=== PATIENT | male | born 1955 | race Caucasian/White ===

== ENCOUNTER 2020-08-01 22:03 | Inpatient (IN) ==
[2020-08-02] MEDS ORDERED: *HR* Promethazine 25 MG/ML VIAL IM PRN (00:30)
[2020-08-02] MEDS ORDERED: Naloxone 0.4 MG/ML INJ IVP PRN (00:30)
[2020-08-02] MEDS ORDERED: Ondansetron 4 MG/2 ML VIAL IVP PRN (00:30)
[2020-08-02] MEDS ORDERED: Perflutren Lipid Microsphere 1.3 ML in 0.9 % Sodium Chloride 8.7 ML IVP PRN (00:33)
[2020-08-02] MEDS ORDERED: D5% in Water 1,000 ML IVC PRN (00:38)
[2020-08-02] MEDS ORDERED: *HR* Dextrose 50 % in Water (Vial) 50 ML VIAL IVP PRN (00:38)
[2020-08-02] MEDS ORDERED: Dextrose Gel 15 GM/37.5 ML TUBE PO PRN ×2 (00:38)
[2020-08-02] MEDS ORDERED: *HR* LORazepam 2 MG/ML VIAL IVP PRN ×2 (00:40)
[2020-08-02] MEDS ORDERED: Ipratropium/Albuterol Neb 3 ML IH PRN (01:00)
[2020-08-02 01:31] LABS: Bilirubin,Urine Negative (Negative); Blood,Urine Negative (Negative); Clarity,Urine Clear (Clear); Color,Urine Yellow (Yellow); Glucose,Urine (UA) Normal (Normal); Ketones,Urine Negative (Negative); Leukocyte Esterase,Urine Negative (Negative); Nitrite,Urine Negative (Negative); PH,Urine 5.5 pH Units (5.0-8.0); Protein,Urine Trace mg/dL (Neg-Trace); Specific Gravity,Urine 1.016 (1.010-1.025); Urobilinogen,Urine Normal (Normal)
[2020-08-02] MEDS: Ringers Solution, Lactated 1,000 ML IVC SCH ×2 (01:32→10:58)
[2020-08-02] MEDS: Acetaminophen 325 MG TABLET PO PRN ×4 (01:33→23:22)
[2020-08-02 01:49] LABS: Protein/Creatinine Ratio,Urine 0.24 mg/mg (0.00-0.20); Sodium, Urine 21.5 mEq/L
[2020-08-02] MEDS: Thiamine (B-1) 200 MG in 0.9 % Sodium Chloride 50 ML IVPB SCH ×2 (02:35→16:39)
[2020-08-02 02:42] LABS: Adenovirus Not Detected (Not Detect); Bordetella Pertussis Not Detected (Not Detect); Chlamydophila pneumoniae Not Detected (Not Detect); Coronavirus 229E Not Detected (Not Detect); Coronavirus HKU1 Not Detected (Not Detect); Coronavirus NL63 Not Detected (Not Detect); Coronavirus OC43 Not Detected (Not Detect); Human Metapneumovirus Not Detected (Not Detect); Human Rhinovirus/Enterovirus Not Detected (Not Detect); Influenza A Subtype 2009 H1 Not Detected (Not Detect); Influenza B Not Detected (Not Detect); Mycoplasma pneumoniae Not Detected (Not Detect); Parainfluenza Virus 1 Not Detected (Not Detect); Parainfluenza Virus 2 Not Detected (Not Detect); Parainfluenza Virus 3 Not Detected (Not Detect); Parainfluenza Virus 4 Not Detected (Not Detect); Respiratory Syncytial Virus Not Detected (Not Detect); SARS-CoV-2 Not Detected (Not Detect)
[2020-08-02] MEDS: Ipratropium/Albuterol Neb 3 ML IH SCH ×6 (03:47→23:19)
[2020-08-02 05:18] LABS: Basophils % 0.5 %; Eosinophils # 0.5 K/mcL (0.0-0.6); Hematocrit 24.2 % (37.5-50.1); Immature Granulocytes % 1.8 % (0-4); Lymphocytes # 1.1 K/mcL (0.6-4.6); Lymphocytes % 13.5 %; Mean Corpuscular HGB Conc 33.1 g/dL (31.6-35.5); Mean Corpuscular Hemoglobin 32.4 pg (28.0-33.3); Mean Platelet Volume 8.9 fL (9.4-12.4); Monocytes # 0.8 K/mcL (0.0-1.3); Monocytes % 9.3 %; Neutrophils # 5.8 K/mcL (1.6-8.9); Nucleated Red Blood Cells 0.4 /100 WBC (0); Platelet Count 354 K/mcL (140-400); Red Blood Count 2.47 M/mcL (4.19-5.50); Red Cell Distribution Width 15.2 % (11.5-14.5); Segmented Neutrophils % 68.9 %; White Blood Count 8.4 K/mcL (4.3-11.1)
[2020-08-02 05:23] LABS: INR 1.2; Prothrombin Time 14.2 Seconds (9.4-12.1)
[2020-08-02 05:41] LABS: Albumin 3.3 g/dL (3.5-5.7); Albumin/Globulin Ratio 1.2 (1.1-2.2); Bilirubin,Total 0.3 mg/dL (0.3-1.0); Calcium 8.4 mg/dL (8.6-10.3); Chol/HDL Ratio 3.3 (0-4.9); Globulin 2.8 g/dL (2.4-3.5); Magnesium 3.2 mg/dL (1.6-2.6); Phosphorous 5.5 mg/dL (2.7-4.5); Potassium 3.5 mEq/L (3.5-5.1); Total Protein 6.1 g/dL (6.4-8.9)
[2020-08-02] MEDS: Cefepime HCl 2,000 MG in Water for inj. (sterile) 20 ML IVP SCH (06:27)
[2020-08-02] MEDS: *HR* Heparin 5,000 UNIT/ML VIAL SQ SCH ×3 (06:27→21:20)
[2020-08-02] MEDS: Insulin LISPRO 300 UNITS/3 ML VIAL SUBQ SCH ×4 (08:17→21:07)
[2020-08-02] MEDS: Aspirin Enteric Coated 325 MG Tablet PO SCH (08:30)
[2020-08-02] MEDS: lamoTRIgine 25 MG TABLET PO SCH ×3 (08:31→21:20)
[2020-08-02] MEDS: MethylPREDNISolone 40 MG/ML VIAL IVP SCH ×3 (08:31→23:23)
[2020-08-02] MEDS ORDERED: Albumin 25% 25gram/100mL 25 GM/100 ML IV.SOLN IVPB ONE (10:59)
[2020-08-02] MEDS ORDERED: Furosemide 40 MG/4 ML VIAL IVP ONE (10:59)
[2020-08-02] MEDS ORDERED: Furosemide 80 MG in 0.9 % Sodium Chloride 50 ML IVPB ONE (11:12)
[2020-08-02] MEDS: Melatonin 3 MG TABLET PO PRN (23:22)
[2020-08-02] MEDS: *HR* LORazepam 2 MG/ML VIAL IVP PRN (23:36)
[2020-08-03 01:43] LABS: Hematocrit 22.9 % (37.5-50.1); Hemoglobin 7.9 g/dL (12.9-16.9); Mean Corpuscular HGB Conc 34.5 g/dL (31.6-35.5); Mean Corpuscular Hemoglobin 32.6 pg (28.0-33.3); Mean Corpuscular Volume 94.6 fL (83.0-100.0); Mean Platelet Volume 8.6 fL (9.4-12.4); Platelet Count 313 K/mcL (140-400); Red Blood Count 2.42 M/mcL (4.19-5.50); Red Cell Distribution Width 14.8 % (11.5-14.5)
[2020-08-03 01:57] LABS: VBG HCO3 22 mEq/L (21-27); VBG PCO2 35 mmHg (41-51); VBG PO2 111 mmHg (25-50)
[2020-08-03 02:03] LABS: BUN/Creatinine Ratio 25 (6-26); Blood Urea Nitrogen 30 mg/dL (8-23); Calcium 8.6 mg/dL (8.6-10.3); Carbon Dioxide 21 mEq/L (23-29); Chloride 97 mEq/L (98-107); Glucose 190 mg/dL (70-105); Magnesium 1.9 mg/dL (1.6-2.6); Osmolality,Calculated 281 (280-300); Phosphorous 4.2 mg/dL (2.7-4.5); Potassium 3.1 mEq/L (3.5-5.1); Sodium 130 mEq/L (136-145); eGFR For African Americans > 60 (> 60); eGFR For Non-African Americans > 60 (> 60)
[2020-08-03] MEDS: Ipratropium/Albuterol Neb 3 ML IH SCH ×6 (04:11→23:15)
[2020-08-03] MEDS: Cefepime HCl 2,000 MG in Water for inj. (sterile) 20 ML IVP SCH ×2 (05:53→16:23)
[2020-08-03] MEDS: Acetaminophen 325 MG TABLET PO PRN ×3 (05:53→20:24)
[2020-08-03] MEDS: *HR* Heparin 5,000 UNIT/ML VIAL SQ SCH ×3 (05:53→20:25)
[2020-08-03] MEDS: Insulin LISPRO 300 UNITS/3 ML VIAL SUBQ SCH ×3 (08:47→16:23)
[2020-08-03] MEDS: MethylPREDNISolone 40 MG/ML VIAL IVP SCH ×2 (08:47→16:22)
[2020-08-03] MEDS: Aspirin Enteric Coated 325 MG Tablet PO SCH (08:47)
[2020-08-03] MEDS: lamoTRIgine 25 MG TABLET PO SCH ×3 (08:47→20:24)
[2020-08-03] MEDS: Thiamine (B-1) 200 MG in 0.9 % Sodium Chloride 50 ML IVPB SCH (16:23)
[2020-08-03] MEDS ORDERED: Nitroglycerin 0.4 MG TAB.SUBL SL ONE (16:27)
[2020-08-03] MEDS: Nitroglycerin 0.4 MG TAB.SUBL SL PRN ×2 (16:38→16:45)
[2020-08-03] MEDS: Gabapentin 300 MG CAPSULE PO SCH (20:25)
[2020-08-04] MEDS: Insulin LISPRO 300 UNITS/3 ML VIAL SUBQ SCH ×5 (00:18→20:15)
[2020-08-04] MEDS: MethylPREDNISolone 40 MG/ML VIAL IVP SCH ×4 (00:59→23:35)
[2020-08-04] MEDS: Ipratropium/Albuterol Neb 3 ML IH SCH ×6 (04:49→23:55)
[2020-08-04] MEDS: Cefepime HCl 2,000 MG in Water for inj. (sterile) 20 ML IVP SCH ×3 (06:42→23:35)
[2020-08-04] MEDS: *HR* Heparin 5,000 UNIT/ML VIAL SQ SCH ×3 (06:43→20:23)
[2020-08-04] MEDS: lamoTRIgine 25 MG TABLET PO SCH ×3 (10:12→20:23)
[2020-08-04] MEDS: Gabapentin 300 MG CAPSULE PO SCH ×3 (10:12→20:23)
[2020-08-04] MEDS: Aspirin Enteric Coated 81 MG Tablet PO SCH (10:12)
[2020-08-04] MEDS: Famotidine 20 MG TABLET PO SCH (10:12)
[2020-08-04] MEDS: FLUoxetine 20 MG CAPSULE PO SCH (10:12)
[2020-08-04 12:07] LABS: Mean Corpuscular HGB Conc 32.1 g/dL (31.6-35.5); Mean Corpuscular Volume 99.6 fL (83.0-100.0); Mean Platelet Volume 8.9 fL (9.4-12.4); Platelet Count 374 K/mcL (140-400); Red Blood Count 2.81 M/mcL (4.19-5.50); Red Cell Distribution Width 15.7 % (11.5-14.5)
[2020-08-04 12:09] LABS: White Blood Count 16.3 K/mcL (4.3-11.1)
[2020-08-04 12:54] LABS: BUN/Creatinine Ratio 33 (6-26); Blood Urea Nitrogen 30 mg/dL (8-23); Calcium 9.6 mg/dL (8.6-10.3); Carbon Dioxide 24 mEq/L (23-29); Chloride 103 mEq/L (98-107); Glucose 138 mg/dL (70-105); Osmolality,Calculated 290 (280-300); Potassium 5.1 mEq/L (3.5-5.1); Sodium 136 mEq/L (136-145); eGFR For African Americans > 60 (> 60); eGFR For Non-African Americans > 60 (> 60)
[2020-08-04] MEDS: Acetaminophen 325 MG TABLET PO PRN (17:01)
[2020-08-05] MEDS: Melatonin 3 MG TABLET PO PRN (01:24)
[2020-08-05] MEDS: Acetaminophen 325 MG TABLET PO PRN ×3 (01:24→18:06)
[2020-08-05 03:02] LABS: Hematocrit 25.2 % (37.5-50.1); Mean Corpuscular HGB Conc 31.7 g/dL (31.6-35.5); Mean Corpuscular Hemoglobin 31.6 pg (28.0-33.3); Mean Corpuscular Volume 99.6 fL (83.0-100.0); Mean Platelet Volume 8.8 fL (9.4-12.4); Platelet Count 344 K/mcL (140-400); Red Blood Count 2.53 M/mcL (4.19-5.50); Red Cell Distribution Width 15.5 % (11.5-14.5); White Blood Count 15.8 K/mcL (4.3-11.1)
[2020-08-05 03:13] LABS: BUN/Creatinine Ratio 40 (6-26); Blood Urea Nitrogen 37 mg/dL (8-23); Calcium 8.9 mg/dL (8.6-10.3); Carbon Dioxide 23 mEq/L (23-29); Chloride 102 mEq/L (98-107); Glucose 185 mg/dL (70-105); Magnesium 1.8 mg/dL (1.6-2.6); Osmolality,Calculated 287 (280-300); Potassium 5.4 mEq/L (3.5-5.1); Sodium 132 mEq/L (136-145); eGFR For African Americans > 60 (> 60); eGFR For Non-African Americans > 60 (> 60)
[2020-08-05] MEDS: Ipratropium/Albuterol Neb 3 ML IH SCH ×6 (03:56→23:29)
[2020-08-05] MEDS: *HR* Heparin 5,000 UNIT/ML VIAL SQ SCH ×3 (05:05→20:53)
[2020-08-05] MEDS: Insulin LISPRO 300 UNITS/3 ML VIAL SUBQ SCH ×4 (07:46→20:49)
[2020-08-05] MEDS: Famotidine 20 MG TABLET PO SCH (09:21)
[2020-08-05] MEDS: FLUoxetine 20 MG CAPSULE PO SCH (09:21)
[2020-08-05] MEDS: Aspirin Enteric Coated 81 MG Tablet PO SCH (09:21)
[2020-08-05] MEDS: predniSONE 20 MG TABLET PO SCH (09:21)
[2020-08-05] MEDS: Cefepime HCl 2,000 MG in Water for inj. (sterile) 20 ML IVP SCH ×3 (09:22→23:43)
[2020-08-05] MEDS: lamoTRIgine 25 MG TABLET PO SCH ×3 (09:22→20:52)
[2020-08-05] MEDS: Gabapentin 300 MG CAPSULE PO SCH ×3 (09:22→20:52)
[2020-08-05 09:58] LABS: ANA IgG by ELISA NONE DETECTED (None Detected); Serine Protease-3 Antibody 1 AU/mL (0-19)
[2020-08-06 02:32] LABS: Basophils % 0.1 %; Eosinophils % 0.1 %; Hematocrit 25.3 % (37.5-50.1); Hemoglobin 7.9 g/dL (12.9-16.9); Immature Granulocytes % 2.3 % (0-4); Lymphocytes # 1.5 K/mcL (0.6-4.6); Lymphocytes % 10.4 %; Mean Corpuscular HGB Conc 31.2 g/dL (31.6-35.5); Mean Corpuscular Hemoglobin 31.1 pg (28.0-33.3); Mean Corpuscular Volume 99.6 fL (83.0-100.0); Mean Platelet Volume 8.8 fL (9.4-12.4); Monocytes # 1.2 K/mcL (0.0-1.3); Monocytes % 8.2 %; Neutrophils # 11.2 K/mcL (1.6-8.9); Nucleated Red Blood Cells 0.4 /100 WBC (0); Platelet Count 324 K/mcL (140-400); Red Blood Count 2.54 M/mcL (4.19-5.50); Red Cell Distribution Width 15.4 % (11.5-14.5); Segmented Neutrophils % 78.9 %; White Blood Count 14.2 K/mcL (4.3-11.1)
[2020-08-06 02:55] LABS: % Iron Saturation 7 % (20-55); Alanine Aminotransferase 75 Units/L (7-52); Albumin 3.4 g/dL (3.5-5.7); Albumin/Globulin Ratio 1.4 (1.1-2.2); Alkaline Phosphatase 211 Units/L (34-104); Aspartate Amino Transferase 66 Units/L (13-39); BUN/Creatinine Ratio 44 (6-26); Bilirubin,Direct 0.1 mg/dL (0.0-0.2); Bilirubin,Indirect 0.2 mg/dL (0.0-1.0); Bilirubin,Total 0.3 mg/dL (0.3-1.0); Blood Urea Nitrogen 32 mg/dL (8-23); Calcium 9.1 mg/dL (8.6-10.3); Carbon Dioxide 25 mEq/L (23-29); Chloride 105 mEq/L (98-107); Globulin 2.4 g/dL (2.4-3.5); Glucose 136 mg/dL (70-105); Iron 20 mcg/dL (65-175); Magnesium 1.7 mg/dL (1.6-2.6); Osmolality,Calculated 291 (280-300); Phosphorous 4.2 mg/dL (2.7-4.5); Potassium 5.2 mEq/L (3.5-5.1); Sodium 136 mEq/L (136-145); Total Protein 5.8 g/dL (6.4-8.9); Transferrin 216 mg/dL (203-362); eGFR For African Americans > 60 (> 60); eGFR For Non-African Americans > 60 (> 60)
[2020-08-06 03:09] LABS: Estimated Average Glucose 108 mg/dl; Hemoglobin A1C 5.4 %
[2020-08-06 03:12] LABS: Ferritin 44 ng/mL (20-250); Procalcitonin 0.08 ng/mL (0.00-0.15)
[2020-08-06 03:16] LABS: Folate 9.9 ng/mL (3.0-16.0)
[2020-08-06] MEDS: Ipratropium/Albuterol Neb 3 ML IH SCH ×6 (03:42→23:56)
[2020-08-06] MEDS: *HR* Heparin 5,000 UNIT/ML VIAL SQ SCH ×3 (05:10→21:25)
[2020-08-06] MEDS ORDERED: Iron Sucrose Complex 200 MG in 0.9 % Sodium Chloride 100 ML IVPB ONE (07:34)
[2020-08-06] MEDS: Aspirin Enteric Coated 81 MG Tablet PO SCH (07:59)
[2020-08-06] MEDS: lamoTRIgine 25 MG TABLET PO SCH ×3 (07:59→21:27)
[2020-08-06] MEDS: Gabapentin 300 MG CAPSULE PO SCH ×3 (07:59→21:27)
[2020-08-06] MEDS: Cefepime HCl 2,000 MG in Water for inj. (sterile) 20 ML IVP SCH ×2 (07:59→16:09)
[2020-08-06] MEDS: predniSONE 20 MG TABLET PO SCH (07:59)
[2020-08-06] MEDS: Folic Acid 1 MG TABLET PO SCH (07:59)
[2020-08-06] MEDS: Famotidine 20 MG TABLET PO SCH (07:59)
[2020-08-06] MEDS: FLUoxetine 20 MG CAPSULE PO SCH (07:59)
[2020-08-06] MEDS: Insulin LISPRO 300 UNITS/3 ML VIAL SUBQ SCH ×4 (08:04→21:30)
[2020-08-06] MEDS: *HR* LORazepam 2 MG/ML VIAL IVP PRN (10:45)
[2020-08-06] MEDS ORDERED: Furosemide 40 MG/4 ML VIAL IVP ONE (17:41)
[2020-08-06] MEDS: Doxycycline 100 MG CAPSULE PO SCH (21:26)
[2020-08-06] MEDS: Acetaminophen 325 MG TABLET PO PRN (22:50)
[2020-08-07] MEDS: Melatonin 3 MG TABLET PO PRN ×2 (02:42→22:47)
[2020-08-07] MEDS: Ipratropium/Albuterol Neb 3 ML IH SCH ×6 (04:22→23:54)
[2020-08-07] MEDS: *HR* Heparin 5,000 UNIT/ML VIAL SQ SCH ×3 (05:57→22:47)
[2020-08-07 06:50] LABS: Basophils % 0.2 %; Eosinophils # 0.2 K/mcL (0.0-0.6); Hematocrit 25.7 % (37.5-50.1); Hemoglobin 8.4 g/dL (12.9-16.9); Immature Granulocytes % 3.4 % (0-4); Lymphocytes # 2.4 K/mcL (0.6-4.6); Lymphocytes % 21.4 %; Mean Corpuscular HGB Conc 32.7 g/dL (31.6-35.5); Mean Corpuscular Hemoglobin 31.9 pg (28.0-33.3); Mean Corpuscular Volume 97.7 fL (83.0-100.0); Neutrophils # 7.2 K/mcL (1.6-8.9); Nucleated Red Blood Cells 0.2 /100 WBC (0); Platelet Count 314 K/mcL (140-400); Red Blood Count 2.63 M/mcL (4.19-5.50); Red Cell Distribution Width 15.3 % (11.5-14.5); White Blood Count 11.2 K/mcL (4.3-11.1)
[2020-08-07 07:08] LABS: BUN/Creatinine Ratio 39 (6-26); Blood Urea Nitrogen 29 mg/dL (8-23); Calcium 9.5 mg/dL (8.6-10.3); Carbon Dioxide 29 mEq/L (23-29); Chloride 102 mEq/L (98-107); Glucose 97 mg/dL (70-105); Magnesium 1.4 mg/dL (1.6-2.6); Osmolality,Calculated 292 (280-300); Potassium 4.7 mEq/L (3.5-5.1); Sodium 138 mEq/L (136-145); eGFR For African Americans > 60 (> 60); eGFR For Non-African Americans > 60 (> 60)
[2020-08-07] MEDS: Insulin LISPRO 300 UNITS/3 ML VIAL SUBQ SCH ×4 (09:32→20:30)
[2020-08-07] MEDS: predniSONE 20 MG TABLET PO SCH (09:46)
[2020-08-07] MEDS: Doxycycline 100 MG CAPSULE PO SCH ×2 (09:46→20:30)
[2020-08-07] MEDS: Gabapentin 300 MG CAPSULE PO SCH ×3 (09:46→20:30)
[2020-08-07] MEDS: Famotidine 20 MG TABLET PO SCH (09:46)
[2020-08-07] MEDS: FLUoxetine 20 MG CAPSULE PO SCH (09:46)
[2020-08-07] MEDS: Folic Acid 1 MG TABLET PO SCH (09:46)
[2020-08-07] MEDS: Metoprolol XL (24 HR) Succ 25 MG TAB.ER.24H PO SCH (09:46)
[2020-08-07] MEDS: lamoTRIgine 25 MG TABLET PO SCH ×3 (09:46→20:30)
[2020-08-07] MEDS: Thiamine (B-1) 100 MG TABLET PO SCH (09:46)
[2020-08-07] MEDS: Aspirin Enteric Coated 81 MG Tablet PO SCH (09:46)
[2020-08-07] MEDS: Acetaminophen 325 MG TABLET PO PRN ×2 (09:52→16:48)
[2020-08-08 02:43] LABS: Hematocrit 24.9 % (37.5-50.1); Mean Corpuscular HGB Conc 32.1 g/dL (31.6-35.5); Mean Corpuscular Hemoglobin 31.4 pg (28.0-33.3); Mean Corpuscular Volume 97.6 fL (83.0-100.0); Mean Platelet Volume 8.9 fL (9.4-12.4); Nucleated Red Blood Cells 0.2 /100 WBC (0); Platelet Count 280 K/mcL (140-400); Red Blood Count 2.55 M/mcL (4.19-5.50); Red Cell Distribution Width 15.2 % (11.5-14.5); White Blood Count 11.6 K/mcL (4.3-11.1)
[2020-08-08] MEDS: Acetaminophen 325 MG TABLET PO PRN ×3 (02:44→21:48)
[2020-08-08 03:02] LABS: Anisocytosis 1+ (Not Present); Lymphocytes # 2.1 K/mcL (0.6-4.6); Monocytes # 0.7 K/mcL (0.0-1.3); Neutrophils # 8.4 K/mcL (1.6-8.9); Platelet Estimate Normal (Normal)
[2020-08-08 03:05] LABS: BUN/Creatinine Ratio 39 (6-26); Blood Urea Nitrogen 26 mg/dL (8-23); Calcium 8.9 mg/dL (8.6-10.3); Carbon Dioxide 27 mEq/L (23-29); Chloride 101 mEq/L (98-107); Glucose 104 mg/dL (70-105); Magnesium 1.4 mg/dL (1.6-2.6); Osmolality,Calculated 283 (280-300); Phosphorous 4.3 mg/dL (2.7-4.5); Potassium 5.1 mEq/L (3.5-5.1); Sodium 134 mEq/L (136-145); eGFR For African Americans > 60 (> 60); eGFR For Non-African Americans > 60 (> 60)
[2020-08-08] MEDS: Ipratropium/Albuterol Neb 3 ML IH SCH ×6 (03:06→23:47)
[2020-08-08 03:17] LABS: Thyroid Stimulating Hormone 1.146 mcIU/mL (0.340-5.600)
[2020-08-08] MEDS: *HR* Heparin 5,000 UNIT/ML VIAL SQ SCH ×3 (06:16→21:48)
[2020-08-08] MEDS: Gabapentin 300 MG CAPSULE PO SCH ×3 (08:13→21:47)
[2020-08-08] MEDS: Folic Acid 1 MG TABLET PO SCH (08:13)
[2020-08-08] MEDS: predniSONE 20 MG TABLET PO SCH (08:14)
[2020-08-08] MEDS: FLUoxetine 20 MG CAPSULE PO SCH (08:14)
[2020-08-08] MEDS: Doxycycline 100 MG CAPSULE PO SCH ×2 (08:14→21:46)
[2020-08-08] MEDS: Aspirin Enteric Coated 81 MG Tablet PO SCH (08:14)
[2020-08-08] MEDS: Thiamine (B-1) 100 MG TABLET PO SCH (08:14)
[2020-08-08] MEDS: lamoTRIgine 25 MG TABLET PO SCH ×3 (08:14→21:46)
[2020-08-08] MEDS: Famotidine 20 MG TABLET PO SCH (08:15)
[2020-08-08] MEDS: Insulin LISPRO 300 UNITS/3 ML VIAL SUBQ SCH ×4 (08:16→21:47)
[2020-08-08] MEDS: NIFEdipine XL (24 HR) 30 MG TAB.ER.24 PO SCH (10:51)
[2020-08-08] MEDS: Nitroglycerin 0.4 MG TAB.SUBL SL PRN (12:54)
[2020-08-08] MEDS: Melatonin 3 MG TABLET PO PRN (21:47)
[2020-08-09 01:18] LABS: Basophils % 0.2 %; Eosinophils % 0.2 %; Hematocrit 24.5 % (37.5-50.1); Immature Granulocytes % 3.5 % (0-4); Lymphocytes # 1.4 K/mcL (0.6-4.6); Lymphocytes % 11.5 %; Mean Corpuscular HGB Conc 32.7 g/dL (31.6-35.5); Mean Corpuscular Hemoglobin 31.9 pg (28.0-33.3); Mean Corpuscular Volume 97.6 fL (83.0-100.0); Mean Platelet Volume 9.1 fL (9.4-12.4); Monocytes # 1.1 K/mcL (0.0-1.3); Monocytes % 9.3 %; Neutrophils # 9.3 K/mcL (1.6-8.9); Platelet Count 303 K/mcL (140-400); Red Blood Count 2.51 M/mcL (4.19-5.50); Red Cell Distribution Width 15.5 % (11.5-14.5); Segmented Neutrophils % 75.3 %; White Blood Count 12.3 K/mcL (4.3-11.1)
[2020-08-09 01:35] LABS: BUN/Creatinine Ratio 33 (6-26); Blood Urea Nitrogen 22 mg/dL (8-23); Calcium 8.8 mg/dL (8.6-10.3); Carbon Dioxide 25 mEq/L (23-29); Chloride 101 mEq/L (98-107); Glucose 257 mg/dL (70-105); Magnesium 1.4 mg/dL (1.6-2.6); Osmolality,Calculated 284 (280-300); Potassium 5.2 mEq/L (3.5-5.1); Sodium 131 mEq/L (136-145); eGFR For African Americans > 60 (> 60); eGFR For Non-African Americans > 60 (> 60)
[2020-08-09] MEDS: Ipratropium/Albuterol Neb 3 ML IH SCH ×6 (04:02→23:32)
[2020-08-09] MEDS: *HR* Heparin 5,000 UNIT/ML VIAL SQ SCH ×3 (06:00→22:33)
[2020-08-09] MEDS: Insulin LISPRO 300 UNITS/3 ML VIAL SUBQ SCH ×4 (07:38→22:34)
[2020-08-09] MEDS: predniSONE 20 MG TABLET PO SCH (07:39)
[2020-08-09] MEDS: NIFEdipine XL (24 HR) 30 MG TAB.ER.24 PO SCH (07:39)
[2020-08-09] MEDS: Aspirin Enteric Coated 81 MG Tablet PO SCH (07:40)
[2020-08-09] MEDS: FLUoxetine 20 MG CAPSULE PO SCH (07:40)
[2020-08-09] MEDS: Thiamine (B-1) 100 MG TABLET PO SCH (07:40)
[2020-08-09] MEDS: Famotidine 20 MG TABLET PO SCH (07:40)
[2020-08-09] MEDS: lamoTRIgine 25 MG TABLET PO SCH ×3 (07:40→22:32)
[2020-08-09] MEDS: Gabapentin 300 MG CAPSULE PO SCH ×3 (07:40→22:32)
[2020-08-09] MEDS: Folic Acid 1 MG TABLET PO SCH (07:41)
[2020-08-09] MEDS ORDERED: Furosemide 40 MG/4 ML VIAL IVP ONE (11:20)
[2020-08-09] MEDS: Melatonin 3 MG TABLET PO PRN (22:32)
[2020-08-09] MEDS: Acetaminophen 325 MG TABLET PO PRN (22:33)
[2020-08-10] MEDS: Ipratropium/Albuterol Neb 3 ML IH SCH ×3 (04:31→10:55)
[2020-08-10] MEDS: *HR* Heparin 5,000 UNIT/ML VIAL SQ SCH ×2 (05:14→13:20)
[2020-08-10 06:00] LABS: Basophils % 0.1 %; Eosinophils # 0.1 K/mcL (0.0-0.6); Hematocrit 26.5 % (37.5-50.1); Hemoglobin 8.7 g/dL (12.9-16.9); Immature Granulocytes % 2.7 % (0-4); Lymphocytes # 2.5 K/mcL (0.6-4.6); Lymphocytes % 18.2 %; Mean Corpuscular HGB Conc 32.8 g/dL (31.6-35.5); Mean Corpuscular Hemoglobin 32.3 pg (28.0-33.3); Mean Corpuscular Volume 98.5 fL (83.0-100.0); Mean Platelet Volume 9.4 fL (9.4-12.4); Monocytes # 1.2 K/mcL (0.0-1.3); Monocytes % 8.5 %; Neutrophils # 9.4 K/mcL (1.6-8.9); Platelet Count 299 K/mcL (140-400); Red Blood Count 2.69 M/mcL (4.19-5.50); Segmented Neutrophils % 69.5 %; White Blood Count 13.5 K/mcL (4.3-11.1)
[2020-08-10 06:28] LABS: BUN/Creatinine Ratio 32 (6-26); Blood Urea Nitrogen 19 mg/dL (8-23); Carbon Dioxide 21 mEq/L (23-29); Glucose 198 mg/dL (70-105); Magnesium 1.5 mg/dL (1.6-2.6); eGFR For African Americans > 60 (> 60); eGFR For Non-African Americans > 60 (> 60)
[2020-08-10 06:48] LABS: Chloride 103 mEq/L (98-107); Osmolality,Calculated 282 (280-300); Potassium 4.8 mEq/L (3.5-5.1); Sodium 132 mEq/L (136-145)
[2020-08-10] MEDS: Insulin LISPRO 300 UNITS/3 ML VIAL SUBQ SCH ×3 (08:58→15:04)
[2020-08-10] MEDS ORDERED: NIFEdipine XL (24 HR) 30 MG TAB.ER.24 PO SCH (09:00)
[2020-08-10] MEDS ORDERED: predniSONE 20 MG TABLET PO SCH (09:00)
[2020-08-10] MEDS ORDERED: predniSONE 10 MG TABLET PO SCH (09:00)
[2020-08-10] MEDS: Thiamine (B-1) 100 MG TABLET PO SCH (09:59)
[2020-08-10] MEDS: Folic Acid 1 MG TABLET PO SCH (09:59)
[2020-08-10] MEDS: Aspirin Enteric Coated 81 MG Tablet PO SCH (10:00)
[2020-08-10] MEDS: Gabapentin 300 MG CAPSULE PO SCH ×2 (10:00→15:04)
[2020-08-10] MEDS: lamoTRIgine 25 MG TABLET PO SCH ×2 (10:00→15:04)
[2020-08-10] MEDS: FLUoxetine 20 MG CAPSULE PO SCH (10:01)
[2020-08-10] MEDS: Famotidine 20 MG TABLET PO SCH (10:01)
[2020-08-10] MEDS: Acetaminophen 325 MG TABLET PO PRN (10:01)
[2020-08-10] MEDS: Metoprolol XL (24 HR) Succ 25 MG TAB.ER.24H PO SCH (10:02)
[2020-08-10 11:49] VITALS: BP 106/72
== END 2020-08-10 16:41 | disposition home or self-care (01) | DRG 137 ==
LOC: 2NENU → SUATTDRO 08-02 09:36
PROVIDERS: ADMIT Internal Medicine; ATTEND Pharmacist

== ENCOUNTER 2020-09-10 17:52 | Observation (INO) ==
[2020-09-10] MEDS ORDERED: Melatonin 3 MG TABLET PO PRN (22:15)
[2020-09-10] MEDS ORDERED: *HR* Promethazine 25 MG/ML VIAL IM PRN (22:15)
[2020-09-10] MEDS ORDERED: Acetaminophen 325 MG TABLET PO PRN (22:15)
[2020-09-10] MEDS ORDERED: Ondansetron 4 MG/2 ML VIAL IVP PRN (22:15)
[2020-09-10] MEDS ORDERED: *HR* HYDROcodone/Acet 5/325 mg TABLET PO PRN (22:15)
[2020-09-10] MEDS ORDERED: Naloxone 0.4 MG/ML INJ IVP PRN (22:15)
[2020-09-10] MEDS ORDERED: Pantoprazole 40 MG VIAL IVP SCH (22:21)
[2020-09-10] MEDS ORDERED: *HR* LORazepam 2 MG/ML VIAL IVP PRN ×3 (22:32)
[2020-09-10] MEDS ORDERED: *HR* Metoprolol 5 MG/5 ML VIAL IVP PRN (22:35)
[2020-09-10] MEDS: 0.9 % Sodium Chloride 1,000 ML IVC SCH (22:49)
[2020-09-10] MEDS: *HR* OxyCODONE Immed Rel 5 MG TABLET PO PRN (23:57)
[2020-09-11] MEDS: Folic Acid 1 MG in 0.9 % Sodium Chloride 50 ML IVPB SCH ×2 (00:33→09:16)
[2020-09-11] MEDS: Thiamine (B-1) 200 MG in 0.9 % Sodium Chloride 50 ML IVPB SCH ×2 (01:39→10:27)
[2020-09-11 04:47] LABS: Basophils # 0.1 K/mcL (0.0-0.2); Basophils % 0.8 %; Eosinophils # 0.4 K/mcL (0.0-0.6); Eosinophils % 4.9 %; Hematocrit 33.1 % (37.5-50.1); Hemoglobin 10.5 g/dL (12.9-16.9); Immature Granulocytes % 0.6 % (0-4); Lymphocytes # 2.2 K/mcL (0.6-4.6); Lymphocytes % 28.2 %; Mean Corpuscular HGB Conc 31.7 g/dL (31.6-35.5); Mean Corpuscular Hemoglobin 31.7 pg (28.0-33.3); Mean Platelet Volume 8.7 fL (9.4-12.4); Monocytes # 0.9 K/mcL (0.0-1.3); Monocytes % 11.2 %; Neutrophils # 4.2 K/mcL (1.6-8.9); Platelet Count 248 K/mcL (140-400); Red Blood Count 3.31 M/mcL (4.19-5.50); Segmented Neutrophils % 54.3 %; White Blood Count 7.7 K/mcL (4.3-11.1)
[2020-09-11] MEDS: 0.9 % Sodium Chloride 1,000 ML IVC SCH (04:56)
[2020-09-11] MEDS: Pantoprazole 40 MG VIAL IVP SCH ×2 (04:56→17:50)
[2020-09-11] MEDS: *HR* Heparin 5,000 UNIT/ML VIAL SQ SCH ×2 (04:56→17:50)
[2020-09-11 05:05] LABS: Alanine Aminotransferase 16 Units/L (7-52); Albumin 3.2 g/dL (3.5-5.7); Albumin/Globulin Ratio 1.5 (1.1-2.2); Alkaline Phosphatase 83 Units/L (34-104); Aspartate Amino Transferase 17 Units/L (13-39); BUN/Creatinine Ratio 10 (6-26); Bilirubin,Total 0.3 mg/dL (0.3-1.0); Blood Urea Nitrogen 6 mg/dL (8-23); Calcium 8.2 mg/dL (8.6-10.3); Carbon Dioxide 22 mEq/L (23-29); Chloride 115 mEq/L (98-107); Chol/HDL Ratio 3.6 (0-4.9); Cholesterol 142 mg/dL (< 200); Globulin 2.1 g/dL (2.4-3.5); Glucose 79 mg/dL (70-105); HDL Cholesterol 40 mg/dL (40-59); LDL Cholesterol,Calculated 76 mg/dL (< 100); Lipase 43 Units/L (11-82); Osmolality,Calculated 295 (280-300); Potassium 3.8 mEq/L (3.5-5.1); Sodium 144 mEq/L (136-145); Total Protein 5.3 g/dL (6.4-8.9); Triglycerides 131 mg/dL (< 150); eGFR For African Americans > 60 (> 60); eGFR For Non-African Americans > 60 (> 60)
[2020-09-11] MEDS: *HR* OxyCODONE Immed Rel 5 MG TABLET PO PRN ×2 (09:15→19:53)
[2020-09-11] MEDS: lamoTRIgine 25 MG TABLET PO SCH ×3 (09:15→19:54)
[2020-09-11] MEDS ORDERED: Ringers Solution, Lactated 1,000 ML IVC SCH (13:45)
[2020-09-11] MEDS ORDERED: Lidocaine -MPF 2% 5 ML VIAL ONE (13:56)
[2020-09-11] MEDS ORDERED: *HR* Propofol 200 MG/20 ML VIAL IVP ONE (13:57)
[2020-09-11] MEDS ORDERED: Sucralfate 1 GM TABLET PO SCH (21:00)
[2020-09-12 01:12] LABS: Hematocrit 31.8 % (37.5-50.1); Hemoglobin 9.7 g/dL (12.9-16.9); Mean Corpuscular HGB Conc 30.5 g/dL (31.6-35.5); Mean Corpuscular Hemoglobin 31.5 pg (28.0-33.3); Mean Corpuscular Volume 103.2 fL (83.0-100.0); Mean Platelet Volume 8.9 fL (9.4-12.4); Platelet Count 241 K/mcL (140-400); Red Blood Count 3.08 M/mcL (4.19-5.50); Red Cell Distribution Width 16.3 % (11.5-14.5); White Blood Count 7.5 K/mcL (4.3-11.1)
[2020-09-12 01:31] LABS: Alanine Aminotransferase 18 Units/L (7-52); Albumin 3.2 g/dL (3.5-5.7); Albumin/Globulin Ratio 1.5 (1.1-2.2); Alkaline Phosphatase 85 Units/L (34-104); Aspartate Amino Transferase 23 Units/L (13-39); BUN/Creatinine Ratio 13 (6-26); Bilirubin,Total 0.2 mg/dL (0.3-1.0); Blood Urea Nitrogen 9 mg/dL (8-23); Calcium 8.3 mg/dL (8.6-10.3); Carbon Dioxide 20 mEq/L (23-29); Chloride 108 mEq/L (98-107); Globulin 2.1 g/dL (2.4-3.5); Glucose 80 mg/dL (70-105); Osmolality,Calculated 280 (280-300); Sodium 136 mEq/L (136-145); Total Protein 5.3 g/dL (6.4-8.9); eGFR For African Americans > 60 (> 60); eGFR For Non-African Americans > 60 (> 60)
[2020-09-12] MEDS: *HR* OxyCODONE Immed Rel 5 MG TABLET PO PRN ×2 (03:37→09:48)
[2020-09-12] MEDS: *HR* Heparin 5,000 UNIT/ML VIAL SQ SCH (07:00)
[2020-09-12] MEDS: Pantoprazole 40 MG VIAL IVP SCH (07:05)
[2020-09-12] MEDS: Folic Acid 1 MG in 0.9 % Sodium Chloride 50 ML IVPB SCH (08:23)
[2020-09-12] MEDS: Thiamine (B-1) 200 MG in 0.9 % Sodium Chloride 50 ML IVPB SCH (08:24)
[2020-09-12] MEDS: lamoTRIgine 25 MG TABLET PO SCH ×2 (08:24→15:53)
[2020-09-12] MEDS ORDERED: NIFEdipine XL (24 HR) 30 MG TAB.ER.24 PO SCH (14:00)
[2020-09-12] MEDS ORDERED: Famotidine 20 MG TABLET PO SCH (14:00)
[2020-09-12] MEDS ORDERED: Metoprolol XL (24 HR) Succ 25 MG TAB.ER.24H PO SCH (14:00)
[2020-09-12] MEDS ORDERED: lisinopriL 20 MG TABLET PO SCH (14:00)
[2020-09-12 14:35] VITALS: BP 139/81; PULSE 74; TEMP 98.5
[2020-09-12 15:38] VITALS: O2SAT 98
[2020-09-13] MEDS ORDERED: Aspirin Enteric Coated 81 MG Tablet PO SCH (09:00)
[2020-09-13] MEDS ORDERED: FLUoxetine 20 MG CAPSULE PO SCH (09:00)
[2020-09-13] MEDS ORDERED: allopurinoL 100 MG TABLET PO SCH (09:00)
== END 2020-09-12 16:33 | disposition home or self-care (01) ==
LOC: 3BNU → SUATTDRO 20:52
PROVIDERS: ADMIT Internal Medicine; ATTEND Internal Medicine
PROC: ENDOEBX (2020-09-11 15:00)

== ENCOUNTER 2021-09-04 17:38 | Observation (INO) ==
[2021-09-05] MEDS ORDERED: Naloxone 0.4 MG/ML INJ IVP PRN (00:45)
[2021-09-05] MEDS ORDERED: Ondansetron 4 MG/2 ML VIAL IVP PRN (00:45)
[2021-09-05 01:14] LABS: Potassium,Urine 15.1 mEq/L; Sodium, Urine 25.7 mEq/L
[2021-09-05 01:38] LABS: Bacteria,Urine Few per hpf (None-Few); Bilirubin,Urine Negative (Negative); Blood,Urine Negative (Negative); Clarity,Urine Turbid (Clear); Color,Urine Colorless (Yellow); Glucose,Urine (UA) Normal (Normal); Ketones,Urine Negative (Negative); Leukocyte Esterase,Urine Large (Negative); Nitrite,Urine Negative (Negative); Protein,Urine Trace mg/dL (Neg-Trace); Specific Gravity,Urine 1.006 (1.010-1.025); Squamous Epithelial Cell,Urine Few per hpf (None-Few); Urobilinogen,Urine Normal (Normal); WBC,Urine 50-100 per hpf (0-3)
[2021-09-05] MEDS ORDERED: Thiamine (B-1) 100 MG in 0.9 % Sodium Chloride 50 ML IVPB ONE (01:44)
[2021-09-05] MEDS ORDERED: 0.9 % Sodium Chloride 1,000 ML IVC SCH (01:45)
[2021-09-05] MEDS ORDERED: *HR* Dextrose 50 % in Water (Syg) 50 ML SYRINGE IVP PRN (01:46)
[2021-09-05] MEDS ORDERED: Dextrose Gel 15 GM/37.5 ML TUBE PO PRN ×2 (01:46)
[2021-09-05] MEDS ORDERED: D5% in Water 1,000 ML IVC PRN (01:46)
[2021-09-05] MEDS ORDERED: *HR* LORazepam 2 MG/ML VIAL IVP PRN ×2 (01:54)
[2021-09-05 02:10] LABS: Basophils % 0.5 %; Eosinophils # 0.5 K/mcL (0.0-0.6); Eosinophils % 9.1 %; Hematocrit 33.9 % (37.5-50.1); Hemoglobin 11.9 g/dL (12.9-16.9); Immature Granulocytes % 0.5 % (0-4); Lymphocytes # 1.7 K/mcL (0.6-4.6); Lymphocytes % 30.7 %; Mean Corpuscular HGB Conc 35.1 g/dL (31.6-35.5); Mean Corpuscular Hemoglobin 33.9 pg (28.0-33.3); Mean Corpuscular Volume 96.6 fL (83.0-100.0); Mean Platelet Volume 8.9 fL (9.4-12.4); Monocytes # 0.6 K/mcL (0.0-1.3); Monocytes % 10.5 %; Neutrophils # 2.7 K/mcL (1.6-8.9); Platelet Count 216 K/mcL (140-400); Red Blood Count 3.51 M/mcL (4.19-5.50); Red Cell Distribution Width 13.8 % (11.5-14.5); Segmented Neutrophils % 48.7 %; White Blood Count 5.6 K/mcL (4.3-11.1)
[2021-09-05] MEDS: Acetaminophen 325 MG TABLET PO PRN ×2 (02:28→15:15)
[2021-09-05] MEDS: cefTRIAXone 1,000 MG in 0.9 % Sodium Chloride 10 ML IVP SCH (02:29)
[2021-09-05 02:32] LABS: Alanine Aminotransferase 26 Units/L (7-52); Albumin 3.9 g/dL (3.5-5.7); Albumin/Globulin Ratio 1.6 (1.1-2.2); Alkaline Phosphatase 65 Units/L (34-104); Aspartate Amino Transferase 24 Units/L (13-39); Bilirubin,Direct 0.1 mg/dL (0.0-0.2); Bilirubin,Indirect 0.2 mg/dL (0.0-1.0); Bilirubin,Total 0.3 mg/dL (0.3-1.0); C-Reactive Protein < 5 mg/L (Less than 10); Ethanol < 10 mg/dL (Less than 10); Globulin 2.4 g/dL (2.4-3.5); Total Protein 6.3 g/dL (6.4-8.9)
[2021-09-05 02:35] LABS: BUN/Creatinine Ratio 14 (6-26); Blood Urea Nitrogen 10 mg/dL (8-23); Calcium 8.9 mg/dL (8.6-10.3); Carbon Dioxide 22 mEq/L (23-29); Chloride 100 mEq/L (98-107); Chol/HDL Ratio 2.7 (0-4.9); Cholesterol 146 mg/dL (< 200); Glucose 88 mg/dL (70-105); HDL Cholesterol 55 mg/dL (40-59); LDL Cholesterol,Calculated 49 mg/dL (< 100); Magnesium 1.2 mg/dL (1.6-2.6); Osmolality,Calculated 270 (280-300); Potassium 4.3 mEq/L (3.5-5.1); Sodium 131 mEq/L (136-145); Triglycerides 211 mg/dL (< 150); Troponin I < 0.03 ng/mL (< 0.04); eGFR For African Americans > 60 (> 60); eGFR For Non-African Americans > 60 (> 60)
[2021-09-05 02:40] LABS: Thyroid Stimulating Hormone 3.745 mcIU/mL (0.340-5.600)
[2021-09-05] MEDS ORDERED: D5% in 0.45% NACL 1,000 ML IVC SCH (03:30)
[2021-09-05] MEDS ORDERED: Magnesium Sulfate 1 GM/102 ML PIGGYBACK IVPB ONE (04:53)
[2021-09-05] MEDS: *HR* Heparin 5,000 UNIT/ML VIAL SQ SCH (05:45)
[2021-09-05 06:14] LABS: BUN/Creatinine Ratio 17 (6-26); Blood Urea Nitrogen 11 mg/dL (8-23); Calcium 8.6 mg/dL (8.6-10.3); Carbon Dioxide 26 mEq/L (23-29); Chloride 102 mEq/L (98-107); Glucose 108 mg/dL (70-105); Lipase 30 Units/L (11-82); Osmolality,Calculated 280 (280-300); Sodium 135 mEq/L (136-145); eGFR For African Americans > 60 (> 60); eGFR For Non-African Americans > 60 (> 60)
[2021-09-05] MEDS ORDERED: D5% in Water 1,000 ML IVC SCH ×2 (06:45→07:00)
[2021-09-05 08:56] LABS: BUN/Creatinine Ratio 16 (6-26); Blood Urea Nitrogen 10 mg/dL (8-23); Calcium 9.4 mg/dL (8.6-10.3); Carbon Dioxide 27 mEq/L (23-29); Chloride 102 mEq/L (98-107); Glucose 105 mg/dL (70-105); Osmolality,Calculated 283 (280-300); Sodium 137 mEq/L (136-145); eGFR For African Americans > 60 (> 60); eGFR For Non-African Americans > 60 (> 60)
[2021-09-05] MEDS: D5% in Water 1,000 ML IVC SCH ×2 (09:17→16:49)
[2021-09-05] MEDS: Insulin LISPRO 300 UNITS/3 ML VIAL SUBQ SCH ×5 (09:18→20:22)
[2021-09-05] MEDS: Pantoprazole 40 MG VIAL IVP SCH (09:25)
[2021-09-05] MEDS: Folic Acid 1 MG TABLET PO SCH (09:25)
[2021-09-05 12:52] LABS: BUN/Creatinine Ratio 17 (6-26); Blood Urea Nitrogen 11 mg/dL (8-23); Calcium 9.2 mg/dL (8.6-10.3); Carbon Dioxide 29 mEq/L (23-29); Chloride 101 mEq/L (98-107); Glucose 136 mg/dL (70-105); Osmolality,Calculated 283 (280-300); Sodium 136 mEq/L (136-145); eGFR For African Americans > 60 (> 60); eGFR For Non-African Americans > 60 (> 60)
[2021-09-05] MEDS ORDERED: Fluticasone Propionate Nasal 50 MCG/SPRAY BOTTLE NS PRN (14:52)
[2021-09-05] MEDS ORDERED: Nitroglycerin 0.4 MG TAB.SUBL SL PRN (14:52)
[2021-09-05] MEDS: *HR* LORazepam 0.5 MG TABLET PO SCH ×2 (15:09→20:15)
[2021-09-05] MEDS: amLODIPine 5 MG TABLET PO SCH (15:15)
[2021-09-05] MEDS: lamoTRIgine 25 MG TABLET PO SCH ×2 (15:15→20:15)
[2021-09-05] MEDS: Metoprolol XL (24 HR) Succ 25 MG TAB.ER.24H PO SCH (15:15)
[2021-09-05] MEDS: lisinopriL 20 MG TABLET PO SCH (15:15)
[2021-09-05] MEDS: Gabapentin 300 MG CAPSULE PO SCH ×2 (15:16→20:15)
[2021-09-05 16:24] LABS: BUN/Creatinine Ratio 13 (6-26); Blood Urea Nitrogen 10 mg/dL (8-23); Calcium 9.1 mg/dL (8.6-10.3); Carbon Dioxide 28 mEq/L (23-29); Chloride 96 mEq/L (98-107); Glucose 156 mg/dL (70-105); Osmolality,Calculated 274 (280-300); Potassium 4.1 mEq/L (3.5-5.1); Sodium 131 mEq/L (136-145); eGFR For African Americans > 60 (> 60); eGFR For Non-African Americans > 60 (> 60)
[2021-09-05 20:42] LABS: BUN/Creatinine Ratio 11 (6-26); Blood Urea Nitrogen 11 mg/dL (8-23); Calcium 8.7 mg/dL (8.6-10.3); Carbon Dioxide 26 mEq/L (23-29); Chloride 98 mEq/L (98-107); Glucose 138 mg/dL (70-105); Osmolality,Calculated 274 (280-300); Potassium 3.9 mEq/L (3.5-5.1); Sodium 131 mEq/L (136-145); eGFR For African Americans > 60 (> 60); eGFR For Non-African Americans > 60 (> 60)
[2021-09-06] MEDS: Acetaminophen 325 MG TABLET PO PRN ×2 (01:42→22:12)
[2021-09-06 05:42] LABS: Basophils # 0.1 K/mcL (0.0-0.2); Basophils % 0.9 %; Eosinophils # 0.5 K/mcL (0.0-0.6); Eosinophils % 9.6 %; Hematocrit 32.1 % (37.5-50.1); Hemoglobin 10.9 g/dL (12.9-16.9); Immature Granulocytes % 0.4 % (0-4); Lymphocytes # 1.3 K/mcL (0.6-4.6); Lymphocytes % 24.8 %; Mean Corpuscular Volume 97.3 fL (83.0-100.0); Mean Platelet Volume 8.8 fL (9.4-12.4); Monocytes # 0.9 K/mcL (0.0-1.3); Monocytes % 15.9 %; Neutrophils # 2.6 K/mcL (1.6-8.9); Platelet Count 215 K/mcL (140-400); Red Cell Distribution Width 14.2 % (11.5-14.5); Segmented Neutrophils % 48.4 %; White Blood Count 5.4 K/mcL (4.3-11.1)
[2021-09-06 07:06] LABS: BUN/Creatinine Ratio 12 (6-26); Blood Urea Nitrogen 9 mg/dL (8-23); Calcium 8.6 mg/dL (8.6-10.3); Carbon Dioxide 27 mEq/L (23-29); Chloride 98 mEq/L (98-107); Glucose 107 mg/dL (70-105); Magnesium 1.5 mg/dL (1.6-2.6); Osmolality,Calculated 277 (280-300); Potassium 4.1 mEq/L (3.5-5.1); Sodium 134 mEq/L (136-145); eGFR For African Americans > 60 (> 60); eGFR For Non-African Americans > 60 (> 60)
[2021-09-06] MEDS: cefTRIAXone 1,000 MG in 0.9 % Sodium Chloride 10 ML IVP SCH (07:49)
[2021-09-06] MEDS: Metoprolol XL (24 HR) Succ 25 MG TAB.ER.24H PO SCH (07:51)
[2021-09-06] MEDS: Aspirin Enteric Coated 81 MG Tablet PO SCH (07:51)
[2021-09-06] MEDS: *HR* LORazepam 0.5 MG TABLET PO SCH ×3 (07:51→20:01)
[2021-09-06] MEDS: *HR* Enoxaparin 40 MG/0.4 ML SYRINGE SQ SCH (07:51)
[2021-09-06] MEDS: Magnesium Oxide 400 MG TABLET PO SCH (07:51)
[2021-09-06] MEDS: FLUoxetine 20 MG CAPSULE PO SCH (08:02)
[2021-09-06] MEDS: Folic Acid 1 MG TABLET PO SCH (08:02)
[2021-09-06] MEDS: amLODIPine 5 MG TABLET PO SCH (08:02)
[2021-09-06] MEDS: lamoTRIgine 25 MG TABLET PO SCH ×3 (08:02→20:01)
[2021-09-06] MEDS: Famotidine 20 MG TABLET PO SCH (08:02)
[2021-09-06] MEDS: Gabapentin 300 MG CAPSULE PO SCH ×3 (08:02→20:02)
[2021-09-06] MEDS: allopurinoL 100 MG TABLET PO SCH (08:02)
[2021-09-06] MEDS: Cholecalciferol (D-3) 1,000 UNIT (25MCG) TABLET PO SCH (08:03)
[2021-09-06] MEDS: Pantoprazole 40 MG VIAL IVP SCH (08:03)
[2021-09-06] MEDS: Thiamine (B-1) 100 MG TABLET PO SCH (08:03)
[2021-09-06] MEDS: Insulin LISPRO 300 UNITS/3 ML VIAL SUBQ SCH ×4 (08:07→20:10)
[2021-09-06] MEDS: Multivit/Ca/Min/Fe/FA 1 TAB TABLET PO SCH (11:22)
[2021-09-06] MEDS: lisinopriL 20 MG TABLET PO SCH (11:22)
[2021-09-06] MEDS ORDERED: Magnesium Oxide 400 MG TABLET PO SCH (21:00)
[2021-09-07 06:40] LABS: Basophils # 0.1 K/mcL (0.0-0.2); Basophils % 1.7 %; Eosinophils # 0.7 K/mcL (0.0-0.6); Eosinophils % 14.3 %; Hematocrit 34.7 % (37.5-50.1); Hemoglobin 11.9 g/dL (12.9-16.9); Immature Granulocytes % 0.4 % (0-4); Lymphocytes # 1.7 K/mcL (0.6-4.6); Lymphocytes % 35.8 %; Mean Corpuscular HGB Conc 34.3 g/dL (31.6-35.5); Mean Corpuscular Hemoglobin 33.9 pg (28.0-33.3); Mean Corpuscular Volume 98.9 fL (83.0-100.0); Mean Platelet Volume 8.6 fL (9.4-12.4); Monocytes # 0.6 K/mcL (0.0-1.3); Monocytes % 13.3 %; Neutrophils # 1.7 K/mcL (1.6-8.9); Platelet Count 218 K/mcL (140-400); Red Blood Count 3.51 M/mcL (4.19-5.50); Red Cell Distribution Width 14.6 % (11.5-14.5); Segmented Neutrophils % 34.5 %; White Blood Count 4.8 K/mcL (4.3-11.1)
[2021-09-07 06:59] LABS: BUN/Creatinine Ratio 16 (6-26); Blood Urea Nitrogen 12 mg/dL (8-23); Calcium 8.9 mg/dL (8.6-10.3); Carbon Dioxide 27 mEq/L (23-29); Chloride 101 mEq/L (98-107); Glucose 113 mg/dL (70-105); Magnesium 1.5 mg/dL (1.6-2.6); Osmolality,Calculated 285 (280-300); Potassium 4.4 mEq/L (3.5-5.1); Sodium 137 mEq/L (136-145); eGFR For African Americans > 60 (> 60); eGFR For Non-African Americans > 60 (> 60)
[2021-09-07] MEDS: *HR* Enoxaparin 40 MG/0.4 ML SYRINGE SQ SCH (08:47)
[2021-09-07] MEDS: cefTRIAXone 1,000 MG in 0.9 % Sodium Chloride 10 ML IVP SCH (08:48)
[2021-09-07] MEDS: Insulin LISPRO 300 UNITS/3 ML VIAL SUBQ SCH ×4 (08:48→20:30)
[2021-09-07] MEDS: Cholecalciferol (D-3) 1,000 UNIT (25MCG) TABLET PO SCH (08:52)
[2021-09-07] MEDS: amLODIPine 5 MG TABLET PO SCH (08:52)
[2021-09-07] MEDS: Aspirin Enteric Coated 81 MG Tablet PO SCH (08:52)
[2021-09-07] MEDS: Famotidine 20 MG TABLET PO SCH (08:52)
[2021-09-07] MEDS: FLUoxetine 20 MG CAPSULE PO SCH (08:53)
[2021-09-07] MEDS: Gabapentin 300 MG CAPSULE PO SCH ×3 (08:53→20:28)
[2021-09-07] MEDS: allopurinoL 100 MG TABLET PO SCH (08:53)
[2021-09-07] MEDS: lisinopriL 20 MG TABLET PO SCH (08:53)
[2021-09-07] MEDS: *HR* LORazepam 0.5 MG TABLET PO SCH (08:53)
[2021-09-07] MEDS: Folic Acid 1 MG TABLET PO SCH (08:53)
[2021-09-07] MEDS: Metoprolol XL (24 HR) Succ 25 MG TAB.ER.24H PO SCH (08:53)
[2021-09-07] MEDS: lamoTRIgine 25 MG TABLET PO SCH ×3 (08:53→20:28)
[2021-09-07] MEDS: Thiamine (B-1) 100 MG TABLET PO SCH (08:53)
[2021-09-07] MEDS: Multivit/Ca/Min/Fe/FA 1 TAB TABLET PO SCH (08:53)
[2021-09-07] MEDS: levoFLOXacin 750 MG TABLET PO SCH (11:02)
[2021-09-07] MEDS: Acetaminophen 325 MG TABLET PO PRN (23:06)
[2021-09-08] MEDS: Magnesium Oxide 400 MG TABLET PO SCH (06:54)
[2021-09-08] MEDS: *HR* Heparin 5,000 UNIT/ML VIAL SQ SCH (06:55)
[2021-09-08] MEDS: allopurinoL 100 MG TABLET PO SCH (08:06)
[2021-09-08] MEDS: Metoprolol XL (24 HR) Succ 25 MG TAB.ER.24H PO SCH (08:06)
[2021-09-08] MEDS: Famotidine 20 MG TABLET PO SCH (08:06)
[2021-09-08] MEDS: levoFLOXacin 750 MG TABLET PO SCH (08:06)
[2021-09-08] MEDS: Cholecalciferol (D-3) 1,000 UNIT (25MCG) TABLET PO SCH (08:06)
[2021-09-08] MEDS: Aspirin Enteric Coated 81 MG Tablet PO SCH (08:06)
[2021-09-08] MEDS: Multivit/Ca/Min/Fe/FA 1 TAB TABLET PO SCH (08:07)
[2021-09-08] MEDS: Thiamine (B-1) 100 MG TABLET PO SCH (08:09)
[2021-09-08] MEDS: amLODIPine 5 MG TABLET PO SCH (08:09)
[2021-09-08] MEDS: lisinopriL 20 MG TABLET PO SCH (08:09)
[2021-09-08] MEDS: Folic Acid 1 MG TABLET PO SCH (08:09)
[2021-09-08] MEDS: Gabapentin 300 MG CAPSULE PO SCH ×3 (08:10→20:19)
[2021-09-08] MEDS: lamoTRIgine 25 MG TABLET PO SCH ×3 (08:10→20:19)
[2021-09-08] MEDS: *HR* Enoxaparin 40 MG/0.4 ML SYRINGE SQ SCH (08:10)
[2021-09-08] MEDS: FLUoxetine 20 MG CAPSULE PO SCH (08:10)
[2021-09-08] MEDS: Insulin LISPRO 300 UNITS/3 ML VIAL SUBQ SCH ×4 (08:11→20:18)
[2021-09-08] MEDS: Acetaminophen 325 MG TABLET PO PRN ×2 (11:13→20:19)
[2021-09-08] MEDS ORDERED: Melatonin 3 MG TABLET PO PRN (19:32)
[2021-09-09 04:13] VITALS: TEMP 97.7
[2021-09-09] MEDS: *HR* Enoxaparin 40 MG/0.4 ML SYRINGE SQ SCH (06:10)
[2021-09-09] MEDS: Cholecalciferol (D-3) 1,000 UNIT (25MCG) TABLET PO SCH (08:43)
[2021-09-09] MEDS: Thiamine (B-1) 100 MG TABLET PO SCH (08:43)
[2021-09-09] MEDS: Insulin LISPRO 300 UNITS/3 ML VIAL SUBQ SCH ×2 (08:43→12:10)
[2021-09-09] MEDS: FLUoxetine 20 MG CAPSULE PO SCH (08:43)
[2021-09-09] MEDS: Gabapentin 300 MG CAPSULE PO SCH (08:44)
[2021-09-09] MEDS: lamoTRIgine 25 MG TABLET PO SCH (08:44)
[2021-09-09] MEDS: Aspirin Enteric Coated 81 MG Tablet PO SCH (08:44)
[2021-09-09] MEDS: amLODIPine 5 MG TABLET PO SCH (08:44)
[2021-09-09] MEDS: lisinopriL 20 MG TABLET PO SCH (08:44)
[2021-09-09] MEDS: Metoprolol XL (24 HR) Succ 25 MG TAB.ER.24H PO SCH (08:44)
[2021-09-09] MEDS: Famotidine 20 MG TABLET PO SCH (08:44)
[2021-09-09] MEDS: levoFLOXacin 750 MG TABLET PO SCH (08:44)
[2021-09-09] MEDS: allopurinoL 100 MG TABLET PO SCH (08:44)
[2021-09-09] MEDS: Folic Acid 1 MG TABLET PO SCH (08:45)
[2021-09-09] MEDS: Multivit/Ca/Min/Fe/FA 1 TAB TABLET PO SCH (08:47)
[2021-09-09 11:53] VITALS: BP 106/80; PULSE 61; O2SAT 98
[2021-09-09] MEDS: Acetaminophen 325 MG TABLET PO PRN (11:58)
[2021-09-09 13:20] LABS: Adenovirus Not Detected (Not Detect); Bordetella Pertussis Not Detected (Not Detect); Chlamydophila pneumoniae Not Detected (Not Detect); Coronavirus 229E Not Detected (Not Detect); Coronavirus HKU1 Not Detected (Not Detect); Coronavirus NL63 Not Detected (Not Detect); Coronavirus OC43 Not Detected (Not Detect); Human Metapneumovirus Not Detected (Not Detect); Human Rhinovirus/Enterovirus Not Detected (Not Detect); Influenza A Subtype 2009 H1 Not Detected (Not Detect); Influenza B Not Detected (Not Detect); Mycoplasma pneumoniae Not Detected (Not Detect); Parainfluenza Virus 1 Not Detected (Not Detect); Parainfluenza Virus 2 Not Detected (Not Detect); Parainfluenza Virus 3 Not Detected (Not Detect); Parainfluenza Virus 4 Not Detected (Not Detect); Respiratory Syncytial Virus Not Detected (Not Detect); SARS-CoV-2 Not Detected (Not Detect)
== END 2021-09-09 16:19 ==
LOC: 2NENU → SUATTDRO 09-05 00:45
PROVIDERS: ADMIT Family Medicine; ATTEND Internal Medicine

== ENCOUNTER 2021-12-12 16:51 | Inpatient (IN) ==
[2021-12-12] MEDS ORDERED: Ondansetron 4 MG/2 ML VIAL IVP PRN (19:45)
[2021-12-12] MEDS ORDERED: Naloxone 0.4 MG/ML INJ IVP PRN (19:45)
[2021-12-12 20:02] LABS: ABG Base Excess -3 mEq/L (-2 to 3); ABG HCO3 20 mEq/L (21-27); ABG Oxygen Saturation 100 % (95-98); ABG PCO2 27 mmHg (35-45); ABG PH 7.47 pH Units (7.32-7.45); ABG PO2 380 mmHg (85-104); ABG TCO2 20 mEq/L (20-26); Blood Gas Modality AVAPS; Blood Gas VT 450 cc
[2021-12-12] MEDS ORDERED: 0.9 % Sodium Chloride 250 ML ONE (20:02)
[2021-12-12] MEDS: Acetaminophen 325 MG TABLET PO PRN (20:15)
[2021-12-12] MEDS: Dexmedetomidine HCl 400 MCG/100 ML MLS IVC SCH (20:15)
[2021-12-12 20:48] LABS: Calcium 8.6 mg/dL (8.6-10.3); Potassium 4.1 mEq/L (3.5-5.1)
[2021-12-12] MEDS ORDERED: *HR* LORazepam 1 MG TABLET PO PRN (20:57)
[2021-12-12] MEDS ORDERED: *HR* Dextrose 50 % in Water (Syg) 50 ML SYRINGE IVP PRN (20:58)
[2021-12-12] MEDS ORDERED: D5% in Water 1,000 ML IVC PRN (20:58)
[2021-12-12] MEDS ORDERED: Dextrose Gel 15 GM/37.5 ML TUBE PO PRN ×2 (20:58)
[2021-12-12 21:27] LABS: Sodium, Urine 65.1 mEq/L
[2021-12-12 21:36] LABS: Amphetamine Screen,Urine Negative ng/mL (Cutoff=1000); Barbiturate Screen,Urine Negative ng/mL (Cutoff=200); Benzodiazepines Screen,Urine Negative ng/mL (Cutoff=200); Cannabinoid Screen,Urine Negative ng/mL (Cutoff = 50); Cocaine Screen,Urine Negative ng/mL (Cutoff= 300); Opiate Screen,Urine Negative ng/mL (Cutoff=300); Phencyclidine Screen,Urine Negative ng/mL (Cutoff=25)
[2021-12-12 21:37] LABS: Bilirubin,Urine Negative (Negative); Blood,Urine Negative (Negative); Clarity,Urine Clear (Clear); Color,Urine Colorless (Yellow); Glucose,Urine (UA) Normal (Normal); Ketones,Urine Negative (Negative); Leukocyte Esterase,Urine Negative (Negative); Nitrite,Urine Negative (Negative); PH,Urine 6.5 pH Units (5.0-8.0); Protein,Urine Negative (Neg-Trace); RBC,Urine 0-3 per hpf (0-3); Specific Gravity,Urine 1.013 (1.010-1.025); Urobilinogen,Urine Normal (Normal); WBC,Urine 0-3 per hpf (0-3)
[2021-12-12] MEDS ORDERED: *HR* LORazepam 2 MG/ML VIAL IVP ONE (22:26)
[2021-12-12] MEDS: Pantoprazole 40 MG VIAL IVP SCH (22:48)
[2021-12-12 22:55] LABS: Adenovirus Not Detected (Not Detect); Bordetella Pertussis Not Detected (Not Detect); Chlamydophila pneumoniae Not Detected (Not Detect); Coronavirus 229E Not Detected (Not Detect); Coronavirus HKU1 Not Detected (Not Detect); Coronavirus NL63 Not Detected (Not Detect); Coronavirus OC43 Not Detected (Not Detect); Human Metapneumovirus Not Detected (Not Detect); Human Rhinovirus/Enterovirus Not Detected (Not Detect); Influenza A Subtype 2009 H1 Not Detected (Not Detect); Influenza B Not Detected (Not Detect); Mycoplasma pneumoniae Not Detected (Not Detect); Parainfluenza Virus 1 Not Detected (Not Detect); Parainfluenza Virus 2 Not Detected (Not Detect); Parainfluenza Virus 3 Not Detected (Not Detect); Parainfluenza Virus 4 Not Detected (Not Detect); Respiratory Syncytial Virus Not Detected (Not Detect); SARS-CoV-2 Not Detected (Not Detect)
[2021-12-13] MEDS: methylPREDNISolone 125 MG/2 ML VIAL IVP SCH ×3 (00:42→20:47)
[2021-12-13] MEDS: Cefepime HCl 2,000 MG in 0.9 % Sodium Chloride Mini Bag 100 ML IVPB SCH ×3 (00:42→15:14)
[2021-12-13] MEDS: Insulin LISPRO 300 UNITS/3 ML VIAL SUBQ SCH ×4 (01:06→18:23)
[2021-12-13] MEDS: Dexmedetomidine HCl 400 MCG/100 ML MLS IVC SCH ×2 (04:14→16:11)
[2021-12-13 04:51] LABS: INR 1.3; Prothrombin Time 14.9 Seconds (9.4-12.1)
[2021-12-13 05:10] LABS: BUN/Creatinine Ratio 20 (6-26); Blood Urea Nitrogen 14 mg/dL (8-23); C-Reactive Protein 209 mg/L (Less than 10); Calcium 8.8 mg/dL (8.6-10.3); Carbon Dioxide 18 mEq/L (23-29); Chloride 98 mEq/L (98-107); Chol/HDL Ratio 1.9 (0-4.9); Cholesterol 76 mg/dL (< 200); Glucose 123 mg/dL (70-105); HDL Cholesterol 40 mg/dL (40-59); LDL Cholesterol,Calculated 21 mg/dL (< 100); Lactate Dehydrogenase 488 Units/L (140-271); Magnesium 1.3 mg/dL (1.6-2.6); Osmolality,Calculated 272 (280-300); Phosphorous 3.5 mg/dL (2.7-4.5); Potassium 4.3 mEq/L (3.5-5.1); Sodium 130 mEq/L (136-145); Thyroid Stimulating Hormone 1.526 mcIU/mL (0.340-5.600); Triglycerides 76 mg/dL (< 150); Troponin I < 0.03 ng/mL (< 0.04)
[2021-12-13 05:13] LABS: Hepatitis B Surface Antigen Nonreactive (Nonreactive)
[2021-12-13 05:20] LABS: Ferritin 115 ng/mL (20-250)
[2021-12-13] MEDS: *HR* Enoxaparin 40 MG/0.4 ML SYRINGE SQ SCH (05:39)
[2021-12-13 05:42] LABS: Hepatitis B Core IgM Nonreactive (Nonreactive); Hepatitis C Virus Antibody Nonreactive (Nonreactive)
[2021-12-13 05:44] LABS: Hepatitis A Antibody IgM Nonreactive (Nonreactive)
[2021-12-13] MEDS ORDERED: D5% in Water 1,000 ML IVC SCH (07:45)
[2021-12-13] MEDS: Pantoprazole 40 MG VIAL IVP SCH (08:01)
[2021-12-13] MEDS: Azithromycin 500 MG in 0.9 % Sodium Chloride 250 ML IVPB SCH (08:01)
[2021-12-13] MEDS ORDERED: Folic Acid 1 MG in 0.9 % Sodium Chloride 50 ML IVPB SCH (09:00)
[2021-12-13 09:04] LABS: Basophils % 0.4 %; Hematocrit 31.9 % (37.5-50.1); Hemoglobin 11.3 g/dL (12.9-16.9); Immature Granulocytes % 4.4 % (0-4); Lymphocytes # 0.3 K/mcL (0.6-4.6); Lymphocytes % 4.6 %; Mean Corpuscular HGB Conc 35.4 g/dL (31.6-35.5); Mean Corpuscular Hemoglobin 32.6 pg (28.0-33.3); Mean Corpuscular Volume 91.9 fL (83.0-100.0); Mean Platelet Volume 8.9 fL (9.4-12.4); Monocytes # 0.1 K/mcL (0.0-1.3); Monocytes % 1.6 %; Neutrophils # 6.2 K/mcL (1.6-8.9); Nucleated Red Blood Cells 0.4 /100 WBC (0); Platelet Count 291 K/mcL (140-400); Red Blood Count 3.47 M/mcL (4.19-5.50)
[2021-12-13 09:21] LABS: BUN/Creatinine Ratio 22 (6-26); Blood Urea Nitrogen 14 mg/dL (8-23); Calcium 8.6 mg/dL (8.6-10.3); Carbon Dioxide 21 mEq/L (23-29); Chloride 100 mEq/L (98-107); Glucose 160 mg/dL (70-105); Osmolality,Calculated 274 (280-300); Potassium 4.3 mEq/L (3.5-5.1); Sodium 130 mEq/L (136-145)
[2021-12-13 14:41] LABS: BUN/Creatinine Ratio 21 (6-26); Blood Urea Nitrogen 12 mg/dL (8-23); Calcium 8.5 mg/dL (8.6-10.3); Carbon Dioxide 21 mEq/L (23-29); Chloride 102 mEq/L (98-107); Glucose 187 mg/dL (70-105); Osmolality,Calculated 279 (280-300); Potassium 4.1 mEq/L (3.5-5.1); Sodium 132 mEq/L (136-145)
[2021-12-13] MEDS: *HR* LORazepam 0.5 MG TABLET PO SCH ×2 (15:14→20:42)
[2021-12-13] MEDS: lamoTRIgine 25 MG TABLET PO SCH (15:34)
[2021-12-13] MEDS: D5% in Water 1,000 ML IVC SCH (16:12)
[2021-12-13] MEDS: Thiamine (B-1) 100 MG, Folic Acid 1 MG, MVI, adult with vitamin K 10 ML in 0.9 % Sodi... IVPB SCH (17:59)
[2021-12-13] MEDS: Acetaminophen 325 MG TABLET PO PRN (20:42)
[2021-12-13 20:45] LABS: BUN/Creatinine Ratio 18 (6-26); Blood Urea Nitrogen 14 mg/dL (8-23); Carbon Dioxide 20 mEq/L (23-29); Chloride 101 mEq/L (98-107); Glucose 225 mg/dL (70-105); Osmolality,Calculated 276 (280-300); Potassium 4.2 mEq/L (3.5-5.1); Sodium 129 mEq/L (136-145)
[2021-12-14] MEDS: Insulin LISPRO 300 UNITS/3 ML VIAL SUBQ SCH ×4 (00:22→18:04)
[2021-12-14] MEDS: Cefepime HCl 2,000 MG in 0.9 % Sodium Chloride Mini Bag 100 ML IVPB SCH ×4 (01:45→23:38)
[2021-12-14] MEDS: D5% in Water 1,000 ML IVC SCH (01:47)
[2021-12-14 02:08] LABS: Basophils % 0.2 %; Hematocrit 29.5 % (37.5-50.1); Hemoglobin 10.2 g/dL (12.9-16.9); Immature Granulocytes % 5.4 % (0-4); Lymphocytes # 0.7 K/mcL (0.6-4.6); Lymphocytes % 4.6 %; Mean Corpuscular HGB Conc 34.6 g/dL (31.6-35.5); Mean Corpuscular Hemoglobin 32.1 pg (28.0-33.3); Mean Corpuscular Volume 92.8 fL (83.0-100.0); Mean Platelet Volume 9.1 fL (9.4-12.4); Monocytes # 0.5 K/mcL (0.0-1.3); Monocytes % 3.7 %; Neutrophils # 12.5 K/mcL (1.6-8.9); Nucleated Red Blood Cells 0.5 /100 WBC (0); Platelet Count 287 K/mcL (140-400); Red Blood Count 3.18 M/mcL (4.19-5.50); Red Cell Distribution Width 13.9 % (11.5-14.5); Segmented Neutrophils % 86.1 %
[2021-12-14 02:24] LABS: White Blood Count 14.5 K/mcL (4.3-11.1)
[2021-12-14 02:49] LABS: Anisocytosis 1+ (Not Present); Platelet Estimate Normal (Normal); Polychromasia 1+ (Not Present)
[2021-12-14] MEDS: *HR* Enoxaparin 40 MG/0.4 ML SYRINGE SQ SCH (05:44)
[2021-12-14 06:01] LABS: BUN/Creatinine Ratio 18 (6-26); Blood Urea Nitrogen 12 mg/dL (8-23); Carbon Dioxide 21 mEq/L (23-29); Chloride 101 mEq/L (98-107); Glucose 171 mg/dL (70-105); Osmolality,Calculated 272 (280-300); Potassium 4.3 mEq/L (3.5-5.1); Sodium 129 mEq/L (136-145)
[2021-12-14] MEDS: *HR* LORazepam 0.5 MG TABLET PO SCH ×2 (07:48→20:38)
[2021-12-14] MEDS: Azithromycin 500 MG in 0.9 % Sodium Chloride 250 ML IVPB SCH (07:48)
[2021-12-14] MEDS: lamoTRIgine 25 MG TABLET PO SCH (07:48)
[2021-12-14] MEDS ORDERED: Furosemide 40 MG in 0.9 % Sodium Chloride 50 ML IV ONE (08:37)
[2021-12-14] MEDS ORDERED: Furosemide 40 MG/4 ML VIAL IVP ONE (08:45)
[2021-12-14] MEDS: Fluticasone Propionate Nasal 50 MCG/SPRAY BOTTLE NS SCH (09:13)
[2021-12-14 09:58] LABS: BUN/Creatinine Ratio 16 (6-26); Blood Urea Nitrogen 11 mg/dL (8-23); Calcium 8.1 mg/dL (8.6-10.3); Carbon Dioxide 18 mEq/L (23-29); Chloride 100 mEq/L (98-107); Glucose 255 mg/dL (70-105); Osmolality,Calculated 276 (280-300); Potassium 4.5 mEq/L (3.5-5.1); Sodium 129 mEq/L (136-145)
[2021-12-14] MEDS ORDERED: *HR* LORazepam 2 MG/ML VIAL IVP ONE (09:58)
[2021-12-14] MEDS ORDERED: Iopamidol - 370 500 ML MLS IVP ONE (10:09)
[2021-12-14] MEDS ORDERED: Nitroglycerin 1 INCH/GM PACKET TP ONE (10:33)
[2021-12-14] MEDS: methylPREDNISolone 125 MG/2 ML VIAL IVP SCH ×2 (10:35→23:37)
[2021-12-14] MEDS ORDERED: *HR* Heparin 5,000 UNIT/ML VIAL IVP ONE (10:52)
[2021-12-14] MEDS ORDERED: *HR* Heparin 5,000 UNIT/ML VIAL IVP PRN (10:52)
[2021-12-14] MEDS ORDERED: Heparin 25,000UNIT/250ML 1/2NS 25,000 UNIT/250 ML IV.SOLN IVC SCH (11:00)
[2021-12-14 11:26] LABS: Hematocrit 31.4 % (37.5-50.1); Hemoglobin 10.9 g/dL (12.9-16.9); Mean Corpuscular HGB Conc 34.7 g/dL (31.6-35.5); Mean Corpuscular Hemoglobin 32.2 pg (28.0-33.3); Mean Corpuscular Volume 92.9 fL (83.0-100.0); Mean Platelet Volume 8.9 fL (9.4-12.4); Platelet Count 302 K/mcL (140-400); Red Blood Count 3.38 M/mcL (4.19-5.50); Red Cell Distribution Width 14.3 % (11.5-14.5); White Blood Count 18.5 K/mcL (4.3-11.1)
[2021-12-14 11:33] LABS: INR 1.2
[2021-12-14] MEDS: Acetaminophen 325 MG TABLET PO PRN (13:30)
[2021-12-14 17:04] LABS: BUN/Creatinine Ratio 16 (6-26); Blood Urea Nitrogen 11 mg/dL (8-23); Calcium 8.3 mg/dL (8.6-10.3); Carbon Dioxide 23 mEq/L (23-29); Chloride 102 mEq/L (98-107); Glucose 152 mg/dL (70-105); Osmolality,Calculated 276 (280-300); Potassium 4.4 mEq/L (3.5-5.1); Sodium 132 mEq/L (136-145)
[2021-12-14] MEDS: *HR* Heparin 5,000 UNIT/ML VIAL IVP PRN (17:27)
[2021-12-14] MEDS: Thiamine (B-1) 100 MG, Folic Acid 1 MG, MVI, adult with vitamin K 10 ML in 0.9 % Sodi... IVPB SCH (17:36)
[2021-12-14 20:32] LABS: BUN/Creatinine Ratio 17 (6-26); Blood Urea Nitrogen 11 mg/dL (8-23); Calcium 8.6 mg/dL (8.6-10.3); Carbon Dioxide 22 mEq/L (23-29); Chloride 102 mEq/L (98-107); Glucose 218 mg/dL (70-105); Osmolality,Calculated 280 (280-300); Potassium 4.3 mEq/L (3.5-5.1); Sodium 132 mEq/L (136-145)
[2021-12-14] MEDS: FLUoxetine 20 MG CAPSULE PO SCH (20:38)
[2021-12-15] MEDS: *HR* Heparin 5,000 UNIT/ML VIAL IVP PRN (00:41)
[2021-12-15 03:42] LABS: Basophils # 0.1 K/mcL (0.0-0.2); Basophils % 0.3 %; Eosinophils % 0.1 %; Hematocrit 31.7 % (37.5-50.1); Hemoglobin 10.8 g/dL (12.9-16.9); Immature Granulocytes % 3.6 % (0-4); Lymphocytes # 0.8 K/mcL (0.6-4.6); Lymphocytes % 4.9 %; Mean Corpuscular HGB Conc 34.1 g/dL (31.6-35.5); Mean Corpuscular Hemoglobin 31.9 pg (28.0-33.3); Mean Corpuscular Volume 93.5 fL (83.0-100.0); Mean Platelet Volume 9.1 fL (9.4-12.4); Monocytes # 0.8 K/mcL (0.0-1.3); Monocytes % 4.6 %; Neutrophils # 14.8 K/mcL (1.6-8.9); Nucleated Red Blood Cells 0.4 /100 WBC (0); Platelet Count 316 K/mcL (140-400); Red Blood Count 3.39 M/mcL (4.19-5.50); Red Cell Distribution Width 14.4 % (11.5-14.5); Segmented Neutrophils % 86.5 %; White Blood Count 17.1 K/mcL (4.3-11.1)
[2021-12-15 04:02] LABS: Alanine Aminotransferase 43 Units/L (7-52); Albumin 3.4 g/dL (3.5-5.7); Albumin/Globulin Ratio 1.2 (1.1-2.2); Alkaline Phosphatase 136 Units/L (34-104); Aspartate Amino Transferase 32 Units/L (13-39); BUN/Creatinine Ratio 19 (6-26); Bilirubin,Total 0.4 mg/dL (0.3-1.0); Blood Urea Nitrogen 10 mg/dL (8-23); Calcium 8.7 mg/dL (8.6-10.3); Carbon Dioxide 21 mEq/L (23-29); Chloride 106 mEq/L (98-107); Globulin 2.8 g/dL (2.4-3.5); Glucose 146 mg/dL (70-105); Osmolality,Calculated 280 (280-300); Potassium 4.4 mEq/L (3.5-5.1); Sodium 134 mEq/L (136-145); Total Protein 6.2 g/dL (6.4-8.9)
[2021-12-15] MEDS: *HR* LORazepam 2 MG/ML VIAL IVP PRN (05:54)
[2021-12-15] MEDS: *HR* LORazepam 0.5 MG TABLET PO SCH ×2 (07:49→19:36)
[2021-12-15] MEDS: Azithromycin 500 MG in 0.9 % Sodium Chloride 250 ML IVPB SCH (07:50)
[2021-12-15] MEDS: Cefepime HCl 2,000 MG in 0.9 % Sodium Chloride Mini Bag 100 ML IVPB SCH ×3 (07:50→23:18)
[2021-12-15] MEDS: *HR* Enoxaparin 40 MG/0.4 ML SYRINGE SQ SCH (07:50)
[2021-12-15] MEDS: Aspirin Enteric Coated 81 MG Tablet PO SCH (07:51)
[2021-12-15] MEDS: allopurinoL 100 MG TABLET PO SCH (07:51)
[2021-12-15] MEDS: Metoprolol XL (24 HR) Succ 25 MG TAB.ER.24H PO SCH (07:51)
[2021-12-15] MEDS: lamoTRIgine 25 MG TABLET PO SCH (07:51)
[2021-12-15] MEDS: Insulin LISPRO 300 UNITS/3 ML VIAL SUBQ SCH ×3 (07:51→17:10)
[2021-12-15] MEDS: Gabapentin 300 MG CAPSULE PO SCH (07:51)
[2021-12-15] MEDS: Fluticasone Propionate Nasal 50 MCG/SPRAY BOTTLE NS SCH (07:52)
[2021-12-15] MEDS: methylPREDNISolone 125 MG/2 ML VIAL IVP SCH ×2 (12:15→23:17)
[2021-12-15] MEDS ORDERED: Furosemide 20 MG/2 ML VIAL IVP ONE (13:32)
[2021-12-15] MEDS: Thiamine (B-1) 100 MG, Folic Acid 1 MG, MVI, adult with vitamin K 10 ML in 0.9 % Sodi... IVPB SCH (17:14)
[2021-12-15] MEDS: FLUoxetine 20 MG CAPSULE PO SCH (19:36)
[2021-12-16] MEDS: *HR* LORazepam 2 MG/ML VIAL IVP PRN ×2 (02:03→09:56)
[2021-12-16] MEDS: *HR* Enoxaparin 40 MG/0.4 ML SYRINGE SQ SCH (04:58)
[2021-12-16 05:08] LABS: Basophils % 0.3 %; Eosinophils % 0.1 %; Hematocrit 33.9 % (37.5-50.1); Hemoglobin 11.3 g/dL (12.9-16.9); Immature Granulocytes % 4.8 % (0-4); Lymphocytes # 0.7 K/mcL (0.6-4.6); Lymphocytes % 5.2 %; Mean Corpuscular HGB Conc 33.3 g/dL (31.6-35.5); Mean Corpuscular Hemoglobin 31.8 pg (28.0-33.3); Mean Corpuscular Volume 95.5 fL (83.0-100.0); Monocytes # 0.4 K/mcL (0.0-1.3); Monocytes % 2.5 %; Neutrophils # 12.4 K/mcL (1.6-8.9); Nucleated Red Blood Cells 0.3 /100 WBC (0); Platelet Count 314 K/mcL (140-400); Red Blood Count 3.55 M/mcL (4.19-5.50); Red Cell Distribution Width 14.7 % (11.5-14.5); Segmented Neutrophils % 87.1 %; White Blood Count 14.2 K/mcL (4.3-11.1)
[2021-12-16] MEDS ORDERED: *HR* Enoxaparin 40 MG/0.4 ML SYRINGE SQ SCH (06:00)
[2021-12-16] MEDS: allopurinoL 100 MG TABLET PO SCH (08:38)
[2021-12-16] MEDS: lamoTRIgine 25 MG TABLET PO SCH (08:38)
[2021-12-16] MEDS: Cefepime HCl 2,000 MG in 0.9 % Sodium Chloride Mini Bag 100 ML IVPB SCH ×2 (08:38→16:14)
[2021-12-16] MEDS: Metoprolol XL (24 HR) Succ 25 MG TAB.ER.24H PO SCH (08:38)
[2021-12-16] MEDS: Aspirin Enteric Coated 81 MG Tablet PO SCH (08:38)
[2021-12-16] MEDS: Gabapentin 300 MG CAPSULE PO SCH (08:38)
[2021-12-16] MEDS: Azithromycin 500 MG in 0.9 % Sodium Chloride 250 ML IVPB SCH (08:39)
[2021-12-16] MEDS: Fluticasone Propionate Nasal 50 MCG/SPRAY BOTTLE NS SCH (08:39)
[2021-12-16] MEDS: Insulin LISPRO 300 UNITS/3 ML VIAL SUBQ SCH ×3 (08:39→16:14)
[2021-12-16] MEDS: methylPREDNISolone 125 MG/2 ML VIAL IVP SCH (09:55)
[2021-12-16] MEDS: FLUoxetine 20 MG CAPSULE PO SCH (22:51)
[2021-12-16] MEDS: MethylPREDNISolone 40 MG/ML VIAL IVP SCH (22:52)
[2021-12-17] MEDS: Cefepime HCl 2,000 MG in 0.9 % Sodium Chloride Mini Bag 100 ML IVPB SCH (01:35)
[2021-12-17 02:18] LABS: Basophils # 0.1 K/mcL (0.0-0.2); Basophils % 0.3 %; Eosinophils # 0.1 K/mcL (0.0-0.6); Eosinophils % 0.4 %; Hematocrit 33.4 % (37.5-50.1); Hemoglobin 11.2 g/dL (12.9-16.9); Lymphocytes # 1.1 K/mcL (0.6-4.6); Lymphocytes % 6.1 %; Mean Corpuscular HGB Conc 33.5 g/dL (31.6-35.5); Mean Corpuscular Hemoglobin 31.7 pg (28.0-33.3); Mean Corpuscular Volume 94.6 fL (83.0-100.0); Mean Platelet Volume 9.2 fL (9.4-12.4); Monocytes # 1.2 K/mcL (0.0-1.3); Monocytes % 6.2 %; Neutrophils # 15.1 K/mcL (1.6-8.9); Nucleated Red Blood Cells 0.1 /100 WBC (0); Platelet Count 320 K/mcL (140-400); Red Blood Count 3.53 M/mcL (4.19-5.50); Red Cell Distribution Width 14.7 % (11.5-14.5); White Blood Count 18.5 K/mcL (4.3-11.1)
[2021-12-17] MEDS: Acetaminophen 325 MG TABLET PO PRN ×4 (04:46→21:21)
[2021-12-17] MEDS: *HR* Enoxaparin 40 MG/0.4 ML SYRINGE SQ SCH (04:47)
[2021-12-17] MEDS: Metoprolol XL (24 HR) Succ 25 MG TAB.ER.24H PO SCH (07:42)
[2021-12-17] MEDS: Aspirin Enteric Coated 81 MG Tablet PO SCH (07:42)
[2021-12-17] MEDS: allopurinoL 100 MG TABLET PO SCH (07:42)
[2021-12-17] MEDS: Fluticasone Propionate Nasal 50 MCG/SPRAY BOTTLE NS SCH (07:42)
[2021-12-17] MEDS: lamoTRIgine 25 MG TABLET PO SCH (07:42)
[2021-12-17] MEDS: Gabapentin 300 MG CAPSULE PO SCH (07:42)
[2021-12-17] MEDS: Insulin LISPRO 300 UNITS/3 ML VIAL SUBQ SCH ×3 (07:43→17:00)
[2021-12-17] MEDS ORDERED: levoFLOXacin 750 MG TABLET PO SCH (09:00)
[2021-12-17 09:06] LABS: BUN/Creatinine Ratio 26 (6-26); Blood Urea Nitrogen 17 mg/dL (8-23); Calcium 8.8 mg/dL (8.6-10.3); Carbon Dioxide 28 mEq/L (23-29); Chloride 102 mEq/L (98-107); Glucose 144 mg/dL (70-105); Osmolality,Calculated 286 (280-300); Potassium 4.5 mEq/L (3.5-5.1); Sodium 136 mEq/L (136-145)
[2021-12-17] MEDS: lisinopriL 20 MG TABLET PO SCH (09:29)
[2021-12-17] MEDS: MethylPREDNISolone 40 MG/ML VIAL IVP SCH (10:03)
[2021-12-17 10:59] LABS: ANA IgG by ELISA NONE DETECTED (None Detected)
[2021-12-17] MEDS: Sennosides/Docusate Sodium TABLET PO SCH (17:51)
[2021-12-17] MEDS: FLUoxetine 20 MG CAPSULE PO SCH (21:22)
[2021-12-18] MEDS: Acetaminophen 325 MG TABLET PO PRN ×3 (02:31→15:09)
[2021-12-18 04:59] LABS: Basophils % 0.3 %; Eosinophils # 0.2 K/mcL (0.0-0.6); Eosinophils % 1.7 %; Hematocrit 33.8 % (37.5-50.1); Hemoglobin 11.5 g/dL (12.9-16.9); Immature Granulocytes % 3.4 % (0-4); Lymphocytes # 2.8 K/mcL (0.6-4.6); Lymphocytes % 19.8 %; Mean Corpuscular Hemoglobin 32.2 pg (28.0-33.3); Mean Corpuscular Volume 94.7 fL (83.0-100.0); Mean Platelet Volume 8.9 fL (9.4-12.4); Monocytes % 7.1 %; Neutrophils # 9.5 K/mcL (1.6-8.9); Nucleated Red Blood Cells 0.1 /100 WBC (0); Platelet Count 301 K/mcL (140-400); Red Blood Count 3.57 M/mcL (4.19-5.50); Red Cell Distribution Width 14.7 % (11.5-14.5); Segmented Neutrophils % 67.7 %
[2021-12-18 05:18] LABS: BUN/Creatinine Ratio 30 (6-26); Blood Urea Nitrogen 21 mg/dL (8-23); Calcium 8.5 mg/dL (8.6-10.3); Carbon Dioxide 25 mEq/L (23-29); Chloride 106 mEq/L (98-107); Glucose 88 mg/dL (70-105); Osmolality,Calculated 274 (280-300); Sodium 131 mEq/L (136-145)
[2021-12-18] MEDS: *HR* Enoxaparin 40 MG/0.4 ML SYRINGE SQ SCH (05:46)
[2021-12-18] MEDS: lisinopriL 20 MG TABLET PO SCH (08:52)
[2021-12-18] MEDS: predniSONE 20 MG TABLET PO SCH (08:52)
[2021-12-18] MEDS: lamoTRIgine 25 MG TABLET PO SCH (08:52)
[2021-12-18] MEDS: allopurinoL 100 MG TABLET PO SCH (08:52)
[2021-12-18] MEDS: Metoprolol XL (24 HR) Succ 25 MG TAB.ER.24H PO SCH (08:52)
[2021-12-18] MEDS: Aspirin Enteric Coated 81 MG Tablet PO SCH (08:52)
[2021-12-18] MEDS: amLODIPine 5 MG TABLET PO SCH (08:52)
[2021-12-18] MEDS: Insulin LISPRO 300 UNITS/3 ML VIAL SUBQ SCH ×3 (08:52→16:13)
[2021-12-18] MEDS: Gabapentin 300 MG CAPSULE PO SCH (08:52)
[2021-12-18] MEDS: Sennosides/Docusate Sodium TABLET PO SCH ×3 (08:53→21:46)
[2021-12-18] MEDS: Fluticasone Propionate Nasal 50 MCG/SPRAY BOTTLE NS SCH (10:02)
[2021-12-18] MEDS: Acetaminophen/Butalbital/CaffeineTABLET PO PRN (17:23)
[2021-12-18] MEDS: FLUoxetine 20 MG CAPSULE PO SCH (19:48)
[2021-12-18] MEDS: Melatonin 3 MG TABLET PO PRN (20:48)
[2021-12-19] MEDS: Acetaminophen 325 MG TABLET PO PRN (01:23)
[2021-12-19] MEDS: *HR* Enoxaparin 40 MG/0.4 ML SYRINGE SQ SCH (05:51)
[2021-12-19] MEDS: Insulin LISPRO 300 UNITS/3 ML VIAL SUBQ SCH ×3 (07:12→15:59)
[2021-12-19] MEDS: Gabapentin 300 MG CAPSULE PO SCH (08:24)
[2021-12-19] MEDS: Aspirin Enteric Coated 81 MG Tablet PO SCH (08:24)
[2021-12-19] MEDS: lamoTRIgine 25 MG TABLET PO SCH (08:24)
[2021-12-19] MEDS: Metoprolol XL (24 HR) Succ 25 MG TAB.ER.24H PO SCH (08:24)
[2021-12-19] MEDS: amLODIPine 5 MG TABLET PO SCH (08:24)
[2021-12-19] MEDS: lisinopriL 20 MG TABLET PO SCH (08:25)
[2021-12-19] MEDS: predniSONE 20 MG TABLET PO SCH (08:25)
[2021-12-19] MEDS: Fluticasone Propionate Nasal 50 MCG/SPRAY BOTTLE NS SCH (08:25)
[2021-12-19] MEDS: allopurinoL 100 MG TABLET PO SCH (08:25)
[2021-12-19] MEDS: Sennosides/Docusate Sodium TABLET PO SCH ×2 (08:25→19:36)
[2021-12-19] MEDS: Acetaminophen/Butalbital/CaffeineTABLET PO PRN (08:30)
[2021-12-19 08:53] LABS: Basophils % 0.3 %; Eosinophils # 0.3 K/mcL (0.0-0.6); Hematocrit 35.3 % (37.5-50.1); Lymphocytes % 25.1 %; Mean Corpuscular Volume 94.1 fL (83.0-100.0); Monocytes # 0.9 K/mcL (0.0-1.3); Monocytes % 5.7 %; Neutrophils # 10.3 K/mcL (1.6-8.9); Platelet Count 332 K/mcL (140-400); Red Blood Count 3.75 M/mcL (4.19-5.50); Red Cell Distribution Width 14.8 % (11.5-14.5); Segmented Neutrophils % 64.9 %; White Blood Count 15.8 K/mcL (4.3-11.1)
[2021-12-19] MEDS: FLUoxetine 20 MG CAPSULE PO SCH (19:37)
[2021-12-19] MEDS: Melatonin 3 MG TABLET PO PRN (19:37)
[2021-12-20 02:16] LABS: Basophils % 0.2 %; Eosinophils # 0.1 K/mcL (0.0-0.6); Eosinophils % 0.5 %; Hematocrit 32.8 % (37.5-50.1); Hemoglobin 11.2 g/dL (12.9-16.9); Immature Granulocytes % 2.2 % (0-4); Mean Corpuscular HGB Conc 34.1 g/dL (31.6-35.5); Mean Corpuscular Hemoglobin 32.2 pg (28.0-33.3); Mean Corpuscular Volume 94.3 fL (83.0-100.0); Mean Platelet Volume 9.3 fL (9.4-12.4); Monocytes % 7.9 %; Neutrophils # 9.6 K/mcL (1.6-8.9); Platelet Count 294 K/mcL (140-400); Red Blood Count 3.48 M/mcL (4.19-5.50); Red Cell Distribution Width 14.6 % (11.5-14.5); Segmented Neutrophils % 74.2 %
[2021-12-20 02:35] LABS: BUN/Creatinine Ratio 33 (6-26); Blood Urea Nitrogen 17 mg/dL (8-23); Calcium 8.5 mg/dL (8.6-10.3); Carbon Dioxide 25 mEq/L (23-29); Chloride 102 mEq/L (98-107); Glucose 166 mg/dL (70-105); Osmolality,Calculated 281 (280-300); Potassium 4.4 mEq/L (3.5-5.1); Sodium 133 mEq/L (136-145)
[2021-12-20] MEDS: *HR* Enoxaparin 40 MG/0.4 ML SYRINGE SQ SCH (05:00)
[2021-12-20] MEDS: Insulin LISPRO 300 UNITS/3 ML VIAL SUBQ SCH ×3 (08:16→18:04)
[2021-12-20] MEDS: amLODIPine 5 MG TABLET PO SCH (08:17)
[2021-12-20] MEDS: lamoTRIgine 25 MG TABLET PO SCH (08:17)
[2021-12-20] MEDS: allopurinoL 100 MG TABLET PO SCH (08:17)
[2021-12-20] MEDS: lisinopriL 20 MG TABLET PO SCH (08:17)
[2021-12-20] MEDS: Sennosides/Docusate Sodium TABLET PO SCH ×2 (08:17→19:52)
[2021-12-20] MEDS: Aspirin Enteric Coated 81 MG Tablet PO SCH (08:17)
[2021-12-20] MEDS: Gabapentin 300 MG CAPSULE PO SCH (08:17)
[2021-12-20] MEDS: Metoprolol XL (24 HR) Succ 25 MG TAB.ER.24H PO SCH (08:18)
[2021-12-20] MEDS: Fluticasone Propionate Nasal 50 MCG/SPRAY BOTTLE NS SCH (08:20)
[2021-12-20] MEDS: predniSONE 20 MG TABLET PO SCH (08:23)
[2021-12-20] MEDS ORDERED: hydrOXYzine pamoate 25 MG CAPSULE PO PRN (18:19)
[2021-12-20 19:52] VITALS: TEMP 97.9
[2021-12-20] MEDS: FLUoxetine 20 MG CAPSULE PO SCH (19:52)
[2021-12-20 21:14] VITALS: BP 138/79; PULSE 65; O2SAT 96
[2021-12-20] MEDS ORDERED: Insulin LISPRO 300 UNITS/3 ML VIAL SUBQ ONE (21:44)
[2021-12-20] MEDS ORDERED: Insulin LISPRO 300 UNITS/3 ML VIAL SUBQ SCH (22:00)
[2021-12-21] MEDS ORDERED: lisinopriL 10 MG TABLET PO SCH (09:00)
== END 2021-12-20 23:59 | disposition other institution (70) | DRG 871 ==
LOC: 2NENU → SUATTDRO 19:45
PROVIDERS: ADMIT Internal Medicine; ATTEND Internal Medicine